=== PATIENT | female | born 1945 | race Caucasian/White ===

== ENCOUNTER 2016-08-04 11:56 | Observation (INO) | payer MEDICARE ==
[2016-08-04] MEDS ORDERED: SODIUM CHLORIDE 0.9% 500 ML IV STA (12:14)
--- NOTE | 2016-08-04 12:18 | ED ---
General Adult HPI - General Chief complaint: Syncope Stated complaint: Poss Syncope Time Seen by Provider: 08/04/16 11:58 Source: patient, EMS, RN notes reviewed Mode of arrival: EMS Limitations: no limitations - History of Present Illness Initial comments: This 71-year-old female who presents to the emergency department after having had a syncopal episode. Patient states she has significant coronary artery disease. Patient states she has a couple stents placed and one blocked artery that remains. Patient states she was at the nail salon today getting her nails done and she felt lightheaded and then she passed out and the last thing she remembers is sitting in the chair she does not remember going to the ground. According to EMS a bystander immediately push on her chest felt a crack in the patient woke up immediately. It is unclear whether that person felt for a pulse were checked for breathing. Patient states currently she feels normal she never had any chest pain never any difficulty breathing denied any palpitations. Patient states she had an episode of this a while ago when she was in [facility] and it was extremely hot. Patient denies headache patient denies any numbness weakness. Patient denies any lightheadedness dizziness or near syncopal episode. - Related Data Home Medications Medication Instructions Recorded Confirmed Aspirin 81 mg PO DAILY 08/04/16 08/04/16 Atenolol [Tenormin] 50 mg PO BID 08/04/16 08/04/16 Atorvastatin [Lipitor] 80 mg PO HS 08/04/16 08/04/16 Calcium Carbonate [Calcium] 600 mg PO HS 08/04/16 08/04/16 Cetirizine HCl [Zyrtec] 10 mg PO DAILY 08/04/16 08/04/16 Ibandronate Sodium [Boniva] 150 mg PO QMONTH 08/04/16 08/04/16 Isosorbide Mononitrate ER [Imdur] 60 mg PO DAILY 08/04/16 08/04/16 Levothyroxine Sodium [Synthroid] 75 mcg PO DAILY 08/04/16 08/04/16 Losartan Potassium [Cozaar] 50 mg PO HS 08/04/16 08/04/16 Montelukast Sodium [Singulair] 10 mg PO HS 08/04/16 08/04/16 Multivitamins, Thera [Multivitamin] 1 tab PO DAILY 08/04/16 08/04/16 Ranolazine [Ranexa] 500 mg PO BID 08/04/16 08/04/16 Timolol [Betimol 0.5% Ophth Soln] 1 drop BOTH EYES BID 08/04/16 08/04/16 Allergies Allergy/AdvReac Type Severity Reaction Status Date / Time morphine Allergy Unknown Nausea & Verified 08/04/16 13:56 Vomiting, Dreams. codeine Allergy Nausea & Verified 08/04/16 13:56 Vomiting Review of Systems ROS Statement: Those systems with pertinent positive or pertinent negative responses have been documented in the HPI. ROS Other: All systems not noted in ROS Statement are negative. Past Medical History Past Medical History: Chest Pain / Angina, Hypertension, Pneumonia, Thyroid Disorder Additional Past Medical History / Comment(s): HYPOGLYCEMIA, SEE CARDIOLOGY H & P History of Any Multi-Drug Resistant Organisms: None Reported Past Surgical History: Back Surgery, Bowel Resection, Hysterectomy Additional Past Surgical History / Comment(s): CERVICAL FUSIONS, RT CATARACT, MULTIPLE EYE SURGERYS Past Anesthesia/Blood Transfusion Reactions: Family History of Problems w/ Anesthesia, Postoperative Nausea & Vomiting (PONV) Additional Past Anesthesia/Blood Transfusion Reaction / Comment(s): FAMILY-PONV Past Psychological History: No Psychological Hx Reported Smoking Status: Never smoker Past Alcohol Use History: Rare Past Drug Use History: None Reported - Past Family History Father Family Medical History: Cancer Additional Family Medical History / Comment(s): LEUKEMIA AND CORONARY THROMBOSIS General Exam - General Exam Comments Initial Comments: GENERAL: Patient is well-developed and well-nourished. Patient is nontoxic and well- hydrated and is in mild distress. ENT: Neck is soft and supple. No significant lymphadenopathy is noted. Oropharynx is clear. Moist mucous membranes. Neck has full range of motion without eliciting any pain. EYES: The sclera were anicteric and conjunctiva were pink and moist. Extraocular movements were intact and pupils were equal round and reactive to light. Eyelids were unremarkable. PULMONARY: Unlabored respirations. Good breath sounds bilaterally. No audible rales rhonchi or wheezing was noted. CARDIOVASCULAR: There is a regular rate and rhythm without any murmurs gallops or rubs. ABDOMEN: Soft and nontender with normal bowel sounds. No palpable organomegaly was noted. There is no palpable pulsatile mass. SKIN: Skin is clear with no lesions or rashes and otherwise unremarkable. NEUROLOGIC: Patient is alert and oriented x3. Cranial nerves II through XII are grossly intact. Motor and sensory are also intact. Normal speech, volume and content. Symmetrical smile. MUSCULOSKELETAL: Normal extremities with adequate strength and full range of motion. No lower extremity swelling or edema. No calf tenderness. LYMPHATICS: No significant lymphadenopathy is noted PSYCHIATRIC: Normal psychiatric evaluation. Normal interpersonal interactions appears functionally intact in deals appropriately with others. No signs of depression. No signs of anxiety. Limitations: no limitations Course Vital Signs 08/04/16 08/04/16 08/04/16 12:06 12:41 13:53 Temperature 97.4 F L 97.9 F Pulse Rate 53 L 58 L 59 L Pulse Rate [ Sitting Dry Ice Maker] Pulse Rate [ Standing Dry Ice Maker ] Pulse Rate [ Supine Dry Ice Maker] Respiratory 18 20 18 Rate Blood Pressure 132/60 140/63 124/60 Blood Pressure [Right Arm Sitting] Blood Pressure [Right Arm Standing] Blood Pressure [Right Arm Supine] O2 Sat by Pulse 100 98 97 Oximetry 08/04/16 08/04/16 14:31 14:49 Temperature 97.9 F Pulse Rate 57 L Pulse Rate [ 56 L Sitting Dry Ice Maker] Pulse Rate [ 61 Standing Dry Ice Maker ] Pulse Rate [ 58 L Supine Dry Ice Maker] Respiratory 18 Rate Blood Pressure 127/57 Blood Pressure 117/55 [Right Arm Sitting] Blood Pressure 119/59 [Right Arm Standing] Blood Pressure 119/57 [Right Arm Supine] O2 Sat by Pulse 98 Oximetry Medical Decision Making - Medical Decision Making EKG shows sinus bradycardia 56 bpm AR interval is 160 QRS is 92 QT interval 46 QTC is 443. Patient's EKG shows no ST segment elevation or depression or T wave abnormalities are noted Spoke with Dr. Sam Vargas agreed the patient needed to be admitted overnight and observed he wanted cardiology consult. - Lab Data Result diagrams: 08/04/16 12:57 08/04/16 12:50 Lab Results 08/04/16 08/04/16 08/04/16 Range/Units 12:45 12:50 12:50 WBC (3.8-10.6) k/uL RBC (3.80-5.40) m/uL Hgb (11.4-16.0) gm/dL Hct (34.0-46.0) % MCV (80.0-100.0) fL MCH (25.0-35.0) pg MCHC (31.0-37.0) g/dL RDW (11.5-15.5) % Plt Count (150-450) k/uL Neutrophils % % Lymphocytes % % Monocytes % % Eosinophils % % Basophils % % Neutrophils # (1.3-7.7) k/uL Lymphocytes # (1.0-4.8) k/uL Monocytes # (0-1.0) k/uL Eosinophils # (0-0.7) k/uL Basophils # (0-0.2) k/uL PT (9.0-12.0) sec INR (<1.1) APTT (22.0-30.0) sec Sodium 136 L (137-145) mmol/L Potassium 4.5 (3.5-5.1) mmol/L Chloride 102 (98-107) mmol/L Carbon Dioxide 26 (22-30) mmol/L Anion Gap 8 mmol/L BUN 20 H (7-17) mg/dL Creatinine 0.94 (0.52-1.04) mg/dL Est GFR (MDRD) Af Amer >60 (>60 ml/min/1.73 sqM) Est GFR (MDRD) Non-Af 59 (>60 ml/min/1.73 sqM) Glucose 129 H (74-99) mg/dL Calcium 9.0 (8.4-10.2) mg/dL Magnesium 1.8 (1.6-2.3) mg/dL Total Bilirubin 0.8 (0.2-1.3) mg/dL AST 27 (14-36) U/L ALT 44 (9-52) U/L Alkaline Phosphatase 44 (38-126) U/L Total Creatine Kinase 64 (30-135) U/L CK-MB (CK-2) 0.7 (0.0-2.4) ng/mL CK-MB (CK-2) Rel Index 1.1 Troponin I <0.012 (0.000-0.034) ng/mL Total Protein 6.1 L (6.3-8.2) g/dL Albumin 3.8 (3.5-5.0) g/dL Urine Color Yellow Urine Appearance Clear (Clear) Urine pH 6.5 (5.0-8.0) Ur Specific [place] 1.014 (1.001-1.035) Urine Protein Negative (Negative) Urine Glucose (UA) Negative (Negative) Urine Ketones Negative (Negative) Urine Blood Negative (Negative) Urine Nitrate Negative (Negative) Urine Bilirubin Negative (Negative) Urine Urobilinogen <2.0 (<2.0) mg/dL Ur Leukocyte Esterase Negative (Negative) 08/04/16 08/04/16 Range/Units 12:50 12:57 WBC 5.9 (3.8-10.6) k/uL RBC 3.53 L (3.80-5.40) m/uL Hgb 12.0 (11.4-16.0) gm/dL Hct 34.7 (34.0-46.0) % MCV 98.2 (80.0-100.0) fL MCH 34.0 (25.0-35.0) pg MCHC 34.6 (31.0-37.0) g/dL RDW 12.5 (11.5-15.5) % Plt Count 224 (150-450) k/uL Neutrophils % 57 % Lymphocytes % 34 % Monocytes % 5 % Eosinophils % 2 % Basophils % 1 % Neutrophils # 3.4 (1.3-7.7) k/uL Lymphocytes # 2.0 (1.0-4.8) k/uL Monocytes # 0.3 (0-1.0) k/uL Eosinophils # 0.1 (0-0.7) k/uL Basophils # 0.0 (0-0.2) k/uL PT 10.9 (9.0-12.0) sec INR 1.1 (<1.1) APTT 22.9 (22.0-30.0) sec Sodium (137-145) mmol/L Potassium (3.5-5.1) mmol/L Chloride (98-107) mmol/L Carbon Dioxide (22-30) mmol/L Anion Gap mmol/L BUN (7-17) mg/dL Creatinine (0.52-1.04) mg/dL Est GFR (MDRD) Af Amer (>60 ml/min/1.73 sqM) Est GFR (MDRD) Non-Af (>60 ml/min/1.73 sqM) Glucose (74-99) mg/dL Calcium (8.4-10.2) mg/dL Magnesium (1.6-2.3) mg/dL Total Bilirubin (0.2-1.3) mg/dL AST (14-36) U/L ALT (9-52) U/L Alkaline Phosphatase (38-126) U/L Total Creatine Kinase (30-135) U/L CK-MB (CK-2) (0.0-2.4) ng/mL CK-MB (CK-2) Rel Index Troponin I (0.000-0.034) ng/mL Total Protein (6.3-8.2) g/dL Albumin (3.5-5.0) g/dL Urine Color Urine Appearance (Clear) Urine pH (5.0-8.0) Ur Specific [place] (1.001-1.035) Urine Protein (Negative) Urine Glucose (UA) (Negative) Urine Ketones (Negative) Urine Blood (Negative) Urine Nitrate (Negative) Urine Bilirubin (Negative) Urine Urobilinogen (<2.0) mg/dL Ur Leukocyte Esterase (Negative) Disposition Clinical Impression: Syncope and collapse Disposition: ADMITTED IP TO THIS [facility] Time of Disposition: 15:13
--- NOTE | 2016-08-04 12:58 | XR ---
EXAMINATION TYPE: XR chest 2V DATE OF EXAM: 08/04/2016 12:42 PM COMPARISON: NONE INDICATION: Syncope TECHNIQUE: Single frontal view of the chest is obtained. FINDINGS: The heart size is normal. The pulmonary vasculature is normal. The lungs are clear. IMPRESSION: 1. No acute pulmonary process.
[2016-08-04 13:05] LABS: Basophils % (A) 1 %; CH 34.2; CHCM 34.9; Eosinophils # (A) 0.1 k/uL (0-0.7); Eosinophils % (A) 2 %; HCT 34.7 % (34.0-46.0); HDW 2.39; Luc # (Auto) 0.14; Luc % (Auto) 2; Lymphocytes % (A) 34 %; MCHC 34.6 g/dL (31.0-37.0); MCV 98.2 fL (80.0-100.0); Mean Platelet Volume 7.5; Monocytes # (A) 0.3 k/uL (0-1.0); Monocytes % (A) 5 %; Neutrophils # (A) 3.4 k/uL (1.3-7.7); Neutrophils % (A) 57 %; RBC 3.53 m/uL (3.80-5.40); RDW 12.5 % (11.5-15.5); WBC 5.9 k/uL (3.8-10.6); WBC (Perox) 6.24
[2016-08-04 13:13] LABS: Appearance,Urine Clear (Clear); Bilirubin,Urine Negative (Negative); Glucose,Urine (UA) Negative (Negative); Ketones,Urine Negative (Negative); Leukocyte Esterase,Urine Negative (Negative); Nitrite,Urine Negative (Negative); PH, Urine 6.5 (5.0-8.0); Protein,Urine Negative (Negative); Specific Gravity,Urine 1.014 (1.001-1.035); UA Billing (MACRO vs. MICRO) CHEM; Urobilinogen,Urine <2.0 mg/dL (<2.0)
[2016-08-04 13:14] LABS: ALT 44 U/L (9-52); AST 27 U/L (14-36); Alkaline Phosphatase 44 U/L (38-126); Anion Gap 8 mmol/L; Blood Urea Nitrogen 20 mg/dL (7-17); Carbon Dioxide 26 mmol/L (22-30); Chloride 102 mmol/L (98-107); Glucose 129 mg/dL (74-99); Magnesium 1.8 mg/dL (1.6-2.3); Non-African American GFR(MDRD) 59 (>60 ml/min/1.73 sqM); Potassium 4.5 mmol/L (3.5-5.1); Sodium 136 mmol/L (137-145); Total Bilirubin 0.8 mg/dL (0.2-1.3); Total Protein 6.1 g/dL (6.3-8.2)
[2016-08-04 13:19] LABS: INR 1.1 (<1.1); Partial Thromboplastin Time 22.9 sec (22.0-30.0); Prothrombin Time 10.9 sec (9.0-12.0)
[2016-08-04 13:25] LABS: Creatine Kinase 64 U/L (30-135)
[2016-08-04 13:39] LABS: Creatine Kinase MB 0.7 ng/mL (0.0-2.4); Troponin I <0.012 ng/mL (0.000-0.034)
[2016-08-04] MEDS ORDERED: NITROGLYCERIN SL TABS 0.4 MG TAB SUBLINGUAL PRN (15:13)
[2016-08-04 20:03] LABS: Creatine Kinase 52 U/L (30-135)
[2016-08-04 20:16] LABS: Creatine Kinase MB 0.5 ng/mL (0.0-2.4); Troponin I <0.012 ng/mL (0.000-0.034)
[2016-08-04] MEDS: RANOLAZINE 500 MG TAB.ER.12H PO SCH (21:03)
[2016-08-04] MEDS: ATORVASTATIN 80 MG TAB PO SCH (21:03)
[2016-08-04] MEDS: ATENOLOL 50 MG TAB PO SCH (21:03)
[2016-08-04] MEDS: CALCIUM CARBONATE 500 MG CHEWABLE PO SCH (21:04)
[2016-08-04] MEDS: MONTELUKAST 10 MG TAB PO SCH (21:04)
[2016-08-04] MEDS: TIMOLOL 0.5% OPHTH DROPS 5 ML BTL BOTH EYES SCH (21:04)
[2016-08-04] MEDS: LOSARTAN 50 MG TAB PO SCH (21:04)
[2016-08-05 00:49] LABS: Cholesterol 112 mg/dL (<200); HDL Cholesterol 58 mg/dL (40-60); Triglycerides 85 mg/dL (<150)
[2016-08-05 00:53] LABS: Creatine Kinase 49 U/L (30-135)
[2016-08-05 01:07] LABS: Creatine Kinase MB 0.5 ng/mL (0.0-2.4); Troponin I <0.012 ng/mL (0.000-0.034)
[2016-08-05] MEDS: LEVOTHYROXINE 75 MCG TAB PO SCH (06:35)
--- NOTE | 2016-08-05 07:47 | P.HPIM ---
History of Present Illness H&P Date: 08/05/16 Chief Complaint: Syncopal episode. This is a history and physical on a 71-year-old white female with known history of coronary artery disease and history of stent placement in the past. The patient was getting her nails done and had sudden onset of collapse. A bystander actually formed compressions and she woke up suddenly after this. She estimates that it was less than a minute that she was actually incapacitated. She was lucid when she came to. There is no history of seizure activity. No numbness or tingling. She does state that she felt a little bit woozy suddenly. No previous episodes of this. No significant chest pain stated. She is not admitted for observation. Cardiac enzymes are nominal. Given her history, I will order echocardiogram and carotid Doppler. Otherwise, she seems lucid. Again, no visual loss, numbness or tingling. No element of sensory dysfunction including smell and taste. Review of Systems Constitutional: Denies chills, Denies fever Eyes: denies blurred vision, denies pain Ears, nose, mouth and throat: Denies headache, Denies sore throat Cardiovascular: Denies chest pain, Denies shortness of breath Respiratory: Denies cough Gastrointestinal: Denies abdominal pain, Denies diarrhea, Denies nausea, Denies vomiting Genitourinary: Denies dysuria, Denies hematuria Musculoskeletal: Denies myalgias Integumentary: Denies pruritus, Denies rash Neurological: Denies numbness, Denies weakness Past Medical History Past Medical History: Coronary Artery Disease (CAD), Chest Pain / Angina, Hyperlipidemia, Hypertension, Pneumonia, Thyroid Disorder Additional Past Medical History / Comment(s): HYPOGLYCEMIA, SEE CARDIOLOGY H & P , PAST MIGRAINES, LT EYE BLIND, UTI, STRESS INCONT OF URINE WEARS A PAD, CONSTIPATION -TAKES AN HERBAL LALXATIVE DAILY, TOLD HAD THE BEGINNINGS OF EMPHYSEMA, HERNIATED DISC IN NECK(HAD SX), 3 YEARS AGO ALEXANDRU Gutierrez AT [facility] IN [place] HAD SYNCOPAL EPISODE-WAS TOLD IT WAS D/T DEHYDRATION.HAD PNE VACCINE THINKS IN 2014 BUT NOT SURE OF DATE. History of Any Multi-Drug Resistant Organisms: None Reported Past Surgical History: Appendectomy, Back Surgery, Bowel Resection, Heart Catheterization With Stent, Hysterectomy Additional Past Surgical History / Comment(s): CERVICAL FUSIONS, RT CATARACT, MULTIPLE LT EYE SURGERYS, LT HAND INDEX FINGER BENIGN GROWTH REMOVED, AGE 17 SX FOR PAPO OVARIAN CYST-1 RUTPURED, BOWEL RESECTION D/T BLOCKAGE, RT EYE SX FOR MAC[place]A HOLE, 2 CARDIAC STENTS. Past Anesthesia/Blood Transfusion Reactions: Family History of Problems w/ Anesthesia, Postoperative Nausea & Vomiting (PONV) Additional Past Anesthesia/Blood Transfusion Reaction / Comment(s): FAMILY-PONV Date of Last Stent Placement:: Past Psychological History: No Psychological Hx Reported Smoking Status: Never smoker Past Alcohol Use History: None Reported Past Drug Use History: None Reported - Past Family History Mother Family Medical History: Osteoarthritis (OA), Rheumatoid Arthritis (RA) Additional Family Medical History / Comment(s): DIEDT CONTROLLED DIABETES. PT 'S AUNT FROM OVARIAN CANCER. Father Family Medical History: Cancer, Myocardial Infarction (MN) Additional Family Medical History / Comment(s): AT AGE 52 HAD MN THEN 11 YEARS LATER FROM LEUKEMIA Medications and Allergies Home Medications Medication Instructions Recorded Confirmed Type Aspirin 81 mg PO DAILY 08/04/16 08/04/16 History Atenolol [Tenormin] 50 mg PO BID 08/04/16 08/04/16 History Atorvastatin [Lipitor] 80 mg PO HS 08/04/16 08/04/16 History Calcium Carbonate [Calcium] 600 mg PO HS 08/04/16 08/04/16 History Cetirizine HCl [Zyrtec] 10 mg PO DAILY 08/04/16 08/04/16 History Ibandronate Sodium [Boniva] 150 mg PO QMONTH 08/04/16 08/04/16 History Isosorbide Mononitrate ER [Imdur] 60 mg PO DAILY 08/04/16 08/04/16 History Levothyroxine Sodium [Synthroid] 75 mcg PO DAILY 08/04/16 08/04/16 History Losartan Potassium [Cozaar] 50 mg PO HS 08/04/16 08/04/16 History Montelukast Sodium [Singulair] 10 mg PO HS 08/04/16 08/04/16 History Multivitamins, Thera [Multivitamin] 1 tab PO DAILY 08/04/16 08/04/16 History Ranolazine [Ranexa] 500 mg PO BID 08/04/16 08/04/16 History Timolol [Betimol 0.5% Ophth Soln] 1 drop BOTH EYES BID 08/04/16 08/04/16 History Allergies Allergy/AdvReac Type Severity Reaction Status Date / Time morphine Allergy Unknown Nausea & Verified 08/04/16 13:56 Vomiting, Dreams. codeine Allergy Nausea & Verified 08/04/16 13:56 Vomiting Physical Exam Vitals: Vital Signs Temp Pulse Pulse Resp BP BP BP 08/05/16 04:00 98.4 F 60 16 146/67 08/05/16 00:00 98.4 F 63 16 155/68 08/04/16 20:58 61 08/04/16 20:00 61 16 08/04/16 19:56 98.1 F 63 16 171/76 08/04/16 17:36 08/04/16 16:56 98 F 57 L 16 164/73 08/04/16 16:05 97.9 F 57 L 18 117/55 BP Pulse Ox 08/05/16 04:00 95 08/05/16 00:00 95 08/04/16 20:58 143/66 08/04/16 20:00 08/04/16 19:56 98 08/04/16 17:36 98 08/04/16 16:56 98 08/04/16 16:05 97 Intake and Output 08/04/16 08/05/16 08/05/16 22:59 06:59 14:59 Other: Voiding Method Toilet Toilet # Voids 1 1 Weight 61.5 kg - Constitutional General appearance: no acute distress - EENT Eyes: EOMI - Neck Neck: no lymphadenopathy - Respiratory Respiratory: bilateral: CTA - Cardiovascular Rhythm: regular Heart sounds: normal: S1, S2 - Gastrointestinal General gastrointestinal: soft, no tenderness - Neurologic Neurologic: CNII-XII intact, focal deficits - Psychiatric Psychiatric: intact judgment & insight Results CBC & Chem 7: 08/04/16 12:57 08/04/16 12:50 Assessment and Plan (1) History of coronary artery disease Status: Chronic (2) Hypertension Status: Chronic (3) Syncope and collapse Status: Acute Plan: Again, cardiology has been consulted. Continue panel monitor at this time given syncopal episode. Check echocardiogram and carotid Doppler. If symptoms continue, consider neurologic evaluation. However, given the rapidity of her symptoms and story, rule out cardiogenic syncope at this time. She orders otherwise. Anticipate discharge later today or in the next 24-48 hours Time with Patient: Less than 30
[2016-08-05] MEDS ORDERED: AMINOPHYLLINE 500 MG/20 ML VIAL IV PRN (08:37)
[2016-08-05] MEDS ORDERED: REGADENOSON 0.4 MG/5 ML SYRINGE IV ONE (08:37)
[2016-08-05] MEDS ORDERED: ASPIRIN 81 MG CHEW PO SCH (09:00)
--- NOTE | 2016-08-05 09:20 | CONS ---
DATE OF CONSULTATION: CHIEF COMPLAINT: Syncope. Denise is a 71-year-old lady with history of coronary artery disease, status post prior angioplasty including angioplasty of the LAD and patient also has chronic total occlusion of the right coronary artery. Patient comes in having had an episode of syncope. She was getting her nails done, was in a sitting position and suddenly passed out. Since being admitted to hospital, she has not had any further episodes of syncope. She denies shortness of breath, palpitations, dizziness, or focal neurological deficits. EKG does not reveal acute ischemic changes. Three 3 sets of cardiac enzymes are negative. Past medical history is significant for CAD, status post angioplasty, hypertension, dyslipidemia, hypothyroidism. Current medications include Singulair 10 q. daily, Cozaar 50 q. daily, Boniva, calcium, Lipitor, Zyrtec, multivitamin, Ranexa, Synthroid, Imdur, Tenormin and aspirin. Allergic to morphine and codeine. Family history is significant for coronary artery disease in her mother. Social history is negative for current smoking, EtOH abuse, or drug abuse. REVIEW OF SYSTEMS: HEENT is unremarkable. CARDIAC: As described above. RESPIRATORY: Negative. GI: Negative. GENITOURINARY: Negative. ALLERGY/IMMUNOLOGY: Negative. ENDOCRINE: Negative. DERM: Negative. CONSTITUTIONAL: Negative. ONCOLOGICAL: Negative. The rest of the system review is not relevant. On exam, patient is afebrile, heart rate is 60 beats per minute, blood pressure is 130/49, respiratory rate is 18. There is no jugular venous distention. Carotid upstroke is normal. There is no bruit. Chest exam reveals good air entry bilaterally. Heart exam reveals first and second heart sounds. No gallop. No murmur, no rub. Abdomen is soft, nontender. Exam of the extremities did not reveal any edema. Peripheral pulses are felt. INVENTORY CONTROL COORDINATOR exam did not reveal focal neurological deficits. Labs show a hemoglobin of 12, platelet count is 224. Potassium is 4.5. Creatinine is 0.9, three sets of tropes are negative. LDL cholesterol is 37. ASSESSMENT: 1. Syncope; rule out cardiac causes. 2. Coronary artery disease, status post multivessel angioplasty. 3. Hypertension. PLAN: I am going to obtain a d-dimer to rule out pulmonary embolism, obtain a 2-D echo and schedule him for a stress test. She states that she had a carotid duplex study done through other office. I will get hold of the results.
--- NOTE | 2016-08-05 11:02 | ECHOF ---
Referral Reason:syncope MEASUREMENTS -------- HEIGHT: 157.5 cm WEIGHT: 61.2 kg BP: 131/49 RVIDd: 2.7 cm (< 3.3) IVSd: 1.1 cm (0.6 - 1.1) LVIDd: 4.1 cm (3.9 - 5.3) LVPWd: 1.2 cm (0.6 - 1.1) IVSs: 1.4 cm LVIDs: 2.8 cm LVPWs: 1.7 cm LA Diam: 3.2 cm (2.7 - 3.8) LAESV Index (A-L): 30.83 ml/m Ao Diam: 3.2 cm (2.0 - 3.7) AV Cusp: 2.2 cm (1.5 - 2.6) MV EXCURSION: 10.716 mm (> 18.000) MV EF SLOPE: 24 mm/s (70 - 150) EPSS: 0.9 cm MV E Jensen: 0.84 m/s MV DecT: 263 ms MV A Jensen: 0.90 m/s MV E/A Ratio: 0.93 RAP: 5.00 mmHg RVSP: 27.07 mmHg FINDINGS -------- Sinus rhythm. This was a technically good study. The left ventricular size is normal. There is borderline concentric left ventricular hypertrophy. Overall left ventricular systolic function is mild-moderately impaired with, an EF between 40 - 45 %. Basal inferior LV wall motion is akinetic. Basal inferoseptal LV wall motion is hypokinetic. The right ventricle is normal in size. LA is midly dilated 29-33ml/m2. The right atrium is normal in size. The aortic valve is trileaflet and appears structurally normal. Mild mitral regurgitation is present. Mild tricuspid regurgitation present. Right ventricular systolic pressure is normal at < 35 mmHg. Trace/mild (physiologic) pulmonic regurgitation. The aortic root size is normal. Normal inferior vena cava with normal inspiratory collapse consistent with estimated right atrial pressure of 5 mmHg. There is no pericardial effusion. CONCLUSIONS -------- 1. Sinus rhythm. 2. The right atrium is normal in size. 3. The aortic valve is trileaflet and appears structurally normal. 4. Mild mitral regurgitation is present. 5. Mild tricuspid regurgitation present. 6. Right ventricular systolic pressure is normal at < 35 mmHg. 7. Trace/mild (physiologic) pulmonic regurgitation. 8. The aortic root size is normal. 9. There is no pericardial effusion. 10. This was a technically good study. 11. The left ventricular size is normal. 12. There is borderline concentric left ventricular hypertrophy. 13. Overall left ventricular systolic function is mild-moderately impaired with, an EF between 40 - 45 %. 14. Basal inferior LV wall motion is akinetic. 15. Basal inferoseptal LV wall motion is hypokinetic. 16. The right ventricle is normal in size. 17. LA is midly dilated 29-33ml/m2. COLLECTIONS ASSOCIATE: Piper Rhoades RDCS
--- NOTE | 2016-08-05 12:30 | EST ---
DATE OF SERVICE: 08/05/2016 AGE: 71Y SEX: F HT: 62" WT: 135 lbs. Lexiscan Cardiolite Stress Test *Heart Rate Blood Pressure *Rest: 68 Rest: 147/102 * *Max. Achieved: 92 Maximum BP: 211/86 85% PMHR: - 100% PMHR: - *METS: - INDICATIONS: Syncope. MEDICATIONS: - STRESS DATA: Pretesting physical examination showed a heart rate of 68, blood pressure is 147/102 mmHg. A 0.4 mg of Lexiscan was given to the patient over 15 seconds per protocol. Max heart rate was 92 beats per minute and maximum blood pressure was 211/86 mmHg. Clinically, she did not have any symptoms and the EKG did not show any significant ST or T-wave abnormalities consistent with ischemia. CONCLUSION: 1. Nondiagnostic echocardiogram stress testing in response to Lexiscan. 2. Please follow up on the Cardiolite portion on a separate report from the Radiology Department.
--- NOTE | 2016-08-05 12:32 | NM ---
EXAMINATION TYPE: NM stress lexiscan cardiolite DATE OF EXAM: 08/05/2016 12:04 PM COMPARISON: NONE HISTORY: Chest pain TECHNIQUE: After the intravenous administration of 10 mCi Tc 99m Sestamibi - Cardiolite resting SPEC T images acquired 60 minutes post injection. The patient received 0.4mg Lexiscan, 26.3 mCi Tc 99m Sestamibi - Stress images obtained [address] injection FINDINGS: Review of stress and rest SPECT images demonstrates fixed defect involving the inferior myocardium. S mall area of stress-induced reversibility not excluded. Gated analysis shows normal wall motion with an estimated left ventricular ejection fraction of 40 %. IMPRESSION: Findings are suggestive of an area of stress-induced reversibility involving the inferior myocardium
--- NOTE | 2016-08-05 12:35 | US ---
EXAMINATION TYPE: US carotid duplex BILAT DATE OF EXAM: 08/05/2016 11:45 AM COMPARISON: None CLINICAL HISTORY: Syncope and collapse. Pt states she was getting her nails done and passed out. Pt is on meds for high BP EXAM MEASUREMENTS: RIGHT: Peak Systolic Velocity (PSV) cm/sec ----- Right CCA: 52.3 ----- Right ICA: 58.4 ----- Right ECA: 109.7 ICA/CCA ratio: 1.1 RIGHT: End Diastole cm/sec ----- Right CCA: 10.4 ----- Right ICA: 16.5 ----- Right ECA: 6.3 LEFT: Peak Systolic Velocity (PSV) cm/sec ----- Left CCA: 60.1 ----- Left ICA: 65.3 ----- Left ECA: 44.1 ICA/CCA ratio: 1.1 LEFT: End Diastole cm/sec ----- Left CCA: 10.4 ----- Left ICA: 19.1 ----- Left ECA: 0.0 VERTEBRALS (direction of flow): Right Vertebral: Antegrade Left Vertebral: Antegrade FINDINGS: Bilateral wall thickening. No significant stenosis. Comparable to other velocities, right ECA appears elevated. Plaque seen in bilateral bulbs. IMPRESSION: 1. No significant hemodynamic stenosis. 2. Bilateral intimal thickening with atherosclerotic plaque at the carotid bifurcation.
[2016-08-05] MEDS: MULTIVITAMINS, THERA 1 EACH TAB PO SCH (12:48)
[2016-08-05] MEDS: ATENOLOL 50 MG TAB PO SCH ×2 (12:48→20:40)
[2016-08-05] MEDS: RANOLAZINE 500 MG TAB.ER.12H PO SCH ×2 (12:48→20:40)
[2016-08-05] MEDS: LORATADINE 10 MG TAB PO SCH (12:49)
[2016-08-05] MEDS: TIMOLOL 0.5% OPHTH DROPS 5 ML BTL BOTH EYES SCH ×2 (12:49→20:40)
[2016-08-05] MEDS: ASPIRIN 325 MG TAB PO SCH (12:49)
[2016-08-05] MEDS: ISOSORBIDE MONONITRATE ER 60 MG TAB.ER.24H PO SCH (12:49)
[2016-08-05] MEDS ORDERED: ASPIRIN 325 MG TAB PO STA (16:17)
[2016-08-05] MEDS ORDERED: SODIUM CHLORIDE 0.9% 1,000 ML in EMPTY BAG 1 BAG IV ONE (16:17)
[2016-08-05] MEDS ORDERED: ALPRAZolam 0.25 MG TAB PO PRN (16:17)
[2016-08-05] MEDS ORDERED: ALPRAZolam 0.5 MG TAB PO PRN (16:17)
[2016-08-05 16:40] LABS: Basophils # (A) 0.1 k/uL (0-0.2); Basophils % (A) 1 %; CH 34.2; CHCM 33.6; Eosinophils # (A) 0.2 k/uL (0-0.7); Eosinophils % (A) 3 %; HCT 38.1 % (34.0-46.0); HDW 2.29; HGB 12.3 gm/dL (11.4-16.0); Luc # (Auto) 0.18; Luc % (Auto) 3; Lymphocytes # (A) 2.2 k/uL (1.0-4.8); Lymphocytes % (A) 41 %; MCH 33.1 pg (25.0-35.0); MCHC 32.3 g/dL (31.0-37.0); MCV 102.2 fL (80.0-100.0); Macrocytosis Slight; Mean Platelet Volume 7.9; Monocytes # (A) 0.4 k/uL (0-1.0); Monocytes % (A) 8 %; Neutrophils # (A) 2.4 k/uL (1.3-7.7); Neutrophils % (A) 45 %; RBC 3.73 m/uL (3.80-5.40); RDW 12.5 % (11.5-15.5); WBC 5.4 k/uL (3.8-10.6); WBC (Perox) 5.52
[2016-08-05 16:46] LABS: Anion Gap 8 mmol/L; Blood Urea Nitrogen 15 mg/dL (7-17); Calcium 9.2 mg/dL (8.4-10.2); Carbon Dioxide 26 mmol/L (22-30); Chloride 101 mmol/L (98-107); Glucose 94 mg/dL (74-99); Non-African American GFR(MDRD) 51 (>60 ml/min/1.73 sqM); Potassium 4.3 mmol/L (3.5-5.1); Sodium 135 mmol/L (137-145)
[2016-08-05] MEDS: ATORVASTATIN 80 MG TAB PO SCH (20:40)
[2016-08-05] MEDS: LOSARTAN 50 MG TAB PO SCH (20:40)
[2016-08-05] MEDS: MONTELUKAST 10 MG TAB PO SCH (20:40)
[2016-08-05] MEDS: CALCIUM CARBONATE 500 MG CHEWABLE PO SCH (20:40)
[2016-08-06] MEDS: ISOSORBIDE MONONITRATE ER 60 MG TAB.ER.24H PO SCH (06:23)
[2016-08-06] MEDS: MULTIVITAMINS, THERA 1 EACH TAB PO SCH (06:23)
[2016-08-06] MEDS: ATENOLOL 50 MG TAB PO SCH (06:23)
[2016-08-06] MEDS: LEVOTHYROXINE 75 MCG TAB PO SCH (06:23)
[2016-08-06] MEDS: ASPIRIN 325 MG TAB PO SCH (06:23)
[2016-08-06] MEDS: RANOLAZINE 500 MG TAB.ER.12H PO SCH (06:23)
[2016-08-06] MEDS: TIMOLOL 0.5% OPHTH DROPS 5 ML BTL BOTH EYES SCH (06:23)
[2016-08-06] MEDS: LORATADINE 10 MG TAB PO SCH (06:25)
[2016-08-06 06:59] LABS: Glucose,Whole Blood 108 mg/dL (75-99)
--- NOTE | 2016-08-06 07:47 | PN ---
A 71-year-old lady with known coronary artery disease was admitted to hospital with syncope and had a stress test that showed ischemia involving inferior wall; however, she was initially to have a cardiac catheterization. Patient declined cardiac catheterization. On reviewing her prior angiographic data revealed totally occluded right coronary artery. Probably the ischemia is related to it. She is stable and has not had any further syncopal events. She is pain free, hemodynamically stable and is eager to go home. I am going to cancel the cardiac cath this morning. On exam, she is comfortable at rest. Vital signs are stable. There is no jugular venous distention. Chest exam reveals good air entry bilaterally. Heart exam reveals first and second heart sounds. No gallop. Abdomen is soft, nontender. Exam of extremities did not reveal edema. Peripheral pulses are felt. ASSESSMENT: 1. Syncope 2. Known coronary artery disease with abnormal stress test which shows ischemia involving inferior wall but that is where she had an occluded vessel. Will treat the patient with medical therapy at this time as per her wishes. She is stable to be discharged home and have outpatient follow-up with Dr. Marques.
[2016-08-06 08:25] VITALS: BP 111/56; PULSE 63; RESP 14; TEMP 98.2
--- NOTE | 2016-08-06 08:47 | P.DS ---
Providers Date of admission: 08/04/16 15:14 Attending physician: Uche Vargas Primary care physician: Uche Vargas - Discharge Diagnosis(es) (1) History of coronary artery disease Current Visit: Yes Status: Chronic Priority: Medium (2) Hypertension Current Visit: Yes Status: Chronic Priority: Low (3) Syncope and collapse Current Visit: Yes Status: Acute Priority: High Hospital Course: See discharge summary 71-year-old white female essentially admitted for syncopal episode. Stress testing did show ischemic element. However given her overall wishes, she wishes to have maximum improvement of medical therapy before doing anything more invasive. She'll follow-up with Dr. Marques in about a week. She also see me in about 7 days. Patient Condition at Discharge: Stable Plan - Discharge Summary New Discharge Prescriptions: Nitroglycerin Sl Tabs [Nitrostat] 0.4 mg SUBLINGUAL Q5M PRN #50 tab PRN Reason: Chest Pain Discharge Medication List Aspirin 81 mg PO DAILY 08/04/16 [History] Atenolol [Tenormin] 50 mg PO BID 08/04/16 [History] Atorvastatin [Lipitor] 80 mg PO HS 08/04/16 [History] Calcium Carbonate [Calcium] 600 mg PO HS 08/04/16 [History] Cetirizine HCl [Zyrtec] 10 mg PO DAILY 08/04/16 [History] Ibandronate Sodium [Boniva] 150 mg PO QMONTH 08/04/16 [History] Isosorbide Mononitrate ER [Imdur] 60 mg PO DAILY 08/04/16 [History] Levothyroxine Sodium [Synthroid] 75 mcg PO DAILY 08/04/16 [History] Losartan Potassium [Cozaar] 50 mg PO HS 08/04/16 [History] Montelukast Sodium [Singulair] 10 mg PO HS 08/04/16 [History] Multivitamins, Thera [Multivitamin] 1 tab PO DAILY 08/04/16 [History] Ranolazine [Ranexa] 500 mg PO BID 08/04/16 [History] Timolol [Betimol 0.5% Ophth Soln] 1 drop BOTH EYES BID 08/04/16 [History] Aspirin 325 mg PO DAILY tab 08/06/16 [Rx] Nitroglycerin Sl Tabs [Nitrostat] 0.4 mg SUBLINGUAL Q5M PRN #50 tab 08/06/16 [Rx ] Follow up Appointment(s)/Referral(s): Sanjay Marques MD [STAFF PHYSICIAN] - 1 Week Uche Vargas MD [Primary Care Provider] - 1 Week Discharge Disposition: HOME SELF-CARE
== END 2016-08-06 12:00 | disposition home or self-care (01) ==
LOC: EC 11:56 → 3OBS 15:14
PROVIDERS: ADMIT Family Medicine; ATTEND Family Medicine
DX: R55 Syncope and collapse (principal); I10 Essential (primary) hypertension; I25.10 Atherosclerotic heart disease of native coronary artery without angina pectoris; E03.9 Hypothyroidism, unspecified; E78.5 Hyperlipidemia, unspecified; I25.82 Chronic total occlusion of coronary artery; Z79.82 Long term (current) use of aspirin; Z88.5 Allergy status to narcotic agent; Z95.5 Presence of coronary angioplasty implant and graft; Z79.899 Other long term (current) drug therapy; Z79.890 Hormone replacement therapy
CPT/HCPCS: 36415; 93005; 93017; 93306; 85379; 80061; 80053; 80048; 82550 ×2; 82553 ×2; 83735; 84484 ×2; 85025 ×2; 85610; 85730; 81003; 71020; 93880; 78452; 99285; 96360; G0378 ×3; A9500; J2785

== ENCOUNTER 2016-08-30 06:00 | Day surgery (SDC) | payer MEDICARE ==
[2016-08-25 11:39] VITALS: BMI 23.8
[2016-08-30] MEDS ORDERED: ATORVASTATIN 80 MG TAB PO STA (06:04)
[2016-08-30] MEDS ORDERED: ASPIRIN 325 MG TAB PO STA (06:04)
[2016-08-30] MEDS ORDERED: ALPRAZolam 0.25 MG TAB PO PRN (06:04)
[2016-08-30] MEDS ORDERED: ALPRAZolam 0.5 MG TAB PO PRN (06:04)
[2016-08-30] MEDS ORDERED: NITROGLYCERIN SL TABS 0.4 MG TAB SUBLINGUAL PRN ×3 (06:04→10:12)
[2016-08-30] MEDS ORDERED: SODIUM CHLORIDE 0.9% 1,000 ML in EMPTY BAG 1 BAG IV ONE (06:04)
[2016-08-30] MEDS ORDERED: HEPARIN SODIUM 1,000 UNIT/ML VIAL ONE (07:10)
[2016-08-30] MEDS ORDERED: diphenhydrAMINE 50 MG/ML 1 ML VIAL ONE (07:11)
[2016-08-30] MEDS ORDERED: MIDAZOLAM 2 MG/2 ML VIAL ONE (07:11)
[2016-08-30] MEDS ORDERED: LIDOCAINE 2% INJ 20 MG/ML (20 ML MDV) ONE ×2 (07:11→09:20)
[2016-08-30] MEDS ORDERED: SODIUM CHLORIDE 0.9% (PF) 10 ML VIAL ONE (07:11)
[2016-08-30] MEDS ORDERED: VERAPAMIL 2.5 MG/ML 2 ML AMP ONE (07:11)
[2016-08-30] MEDS ORDERED: MIDAZOLAM 2 MG/2 ML VIAL IVP ONE (07:58)
[2016-08-30] MEDS ORDERED: LIDOCAINE 2% (PF) 20 MG/ML 10ML SQ ONE ×2 (08:03→09:21)
[2016-08-30] MEDS ORDERED: CLOPIDOGREL 75 MG TAB ONE (09:36)
[2016-08-30] MEDS ORDERED: CLOPIDOGREL 75 MG TAB PO ONE (09:40)
[2016-08-30] MEDS: NITROGLYCERIN 1000MCG/10ML SYRINGE INTRACORON ONE ×4 (09:42→10:02)
[2016-08-30] MEDS ORDERED: IOHEXOL 350 MG/ML 100 ML BOTTLE INJ ONE (10:04)
[2016-08-30] MEDS ORDERED: RX INFO: IV CONTRAST WAS GIVEN 1 EACH MISC MISCELLANE PRN (10:12)
[2016-08-30] MEDS ORDERED: ZOLPIDEM 5 MG TAB PO PRN (10:12)
[2016-08-30] MEDS ORDERED: ATROPINE SULFATE 0.1 MG/ML 10ML SYRINGE IV PRN (10:12)
[2016-08-30] MEDS ORDERED: MAG HYDROX/AL HYDROX/SIMETH 30 ML CUP PO PRN (10:12)
[2016-08-30] MEDS ORDERED: SODIUM CHLORIDE 0.9% 1,000 ML IV SCH (10:15)
[2016-08-30] MEDS ORDERED: hydrALAZINE HCL 20 MG/ML 1 ML VIAL ONE (10:24)
[2016-08-30] MEDS ORDERED: hydrALAZINE HCL 20 MG/ML 1 ML VIAL IV ONE (10:27)
[2016-08-30] MEDS: ACETAMINOPHEN TAB 325 MG TAB PO PRN ×3 (13:29→21:58)
[2016-08-30] MEDS ORDERED: SODIUM CHLORIDE 0.9% 1,000 ML IV ONE (15:00)
[2016-08-30] MEDS: RANOLAZINE 500 MG TAB.ER.12H PO SCH (20:29)
[2016-08-30] MEDS: ATENOLOL 50 MG TAB PO SCH (20:29)
[2016-08-30] MEDS: TIMOLOL 0.5% OPHTH DROPS 5 ML BTL LEFT EYE SCH (20:33)
[2016-08-30] MEDS ORDERED: CALCIUM CARBONATE 500 MG CHEWABLE PO SCH (21:00)
[2016-08-30] MEDS ORDERED: LOSARTAN 50 MG TAB PO SCH (21:00)
[2016-08-30] MEDS ORDERED: MONTELUKAST 10 MG TAB PO SCH (21:00)
--- NOTE | 2016-08-30 23:09 | LTR ---
August 30, 2016 RE: Denise Cormier Dear Uche: As we discussed on the phone, Denise Cormier underwent successful balloon angioplasty and stenting of the right coronary artery with a good angiographic result and without any complication. Thank you for allowing us to participate in her care. Sincerely, LUIS FREITAS MD
--- NOTE | 2016-08-30 23:09 | CC ---
DATE OF SERVICE: August 30, 2016. Performing physician: Sanjay Marques M.D. production support developer. PROCEDURE PERFORMED: 1. Selective right and left coronary angiogram. 2. Successful stenting of the proximal right coronary artery using 2.5 x 28 mm Xience BRUNILDA with a good angiographic results. 3. Successful stenting of the distal RCA using 2.5 by the 18 mm Xience BRUNILDA with a good angiographic results. 4. Successful stenting of the mid RCA using 2.5 x 8 mm Xience BRUNILDA with a good angiographic results. 5. An atherectomy of the right coronary artery using the CSI device. 6. Successful placement of transvenous temporary pacemaker. 7. Selective right common femoral artery angiogram. INDICATION: This is a very pleasant 71-year-old female patient who is known to have coronary artery disease and prior stenting of the LAD was experiencing chest discomfort consistent with angina and was relieved by nitroglycerin. Her symptoms has been getting quite worse in terms of frequency in intensity. The decision was made toward heart catheterization and possible percutaneous coronary intervention. Approach: Right common femoral artery. COMPLICATIONS: None. Level of sedation: Moderate with sedation. Length of 2 hours and 15 minutes. PROCEDURE DESCRIPTION: After obtaining informed consent, the patient was brought to the cardiac dental laboratory technician apprentice. The right femoral artery was cannulated using micropuncture technique. The micropuncture wire passed easily. Then I placed 6 Romansh sheath in the right common femoral artery. Subsequently, I did selective right and left coronary angiogram using JR 3.5 and JL 3.5 catheters. After that I did intervene on the right coronary artery. Please see separate paragraph for that. SELECTIVE CORONARY ANGIOGRAM: 1. The right coronary artery is a large-caliber vessel and it is a dominant vessel and it is 100% occluded in the proximal portion and fills by collateral from the left coronary system. 2. The left main is angiographically normal, it bifurcates into the left circumflex and left anterior descending artery. 3. The left circumflex is a large-caliber vessel and it is a nondominant vessel. The ostial and proximal left circumflex appeared to be diseased 50%. The mid left circumflex appeared to have mild disease only and gives rise into a medium size acute marginal branch. The distal left circumflex continues after that as a small-caliber vessel in the AV groove after gives rise into a small second obtuse marginal branch. 4. Left anterior descending artery: The proximal left anterior descending artery is stented and the stent has mild in-stent restenosis. The mid LAD appeared to have mild disease only and LAD distally appeared to be angiographically normal. The LAD gives rises in the proximal portion in to 2 small diagonal branches. PCI of the RCA: Anticoagulation was initiated using heparin and the patient was given a weight -based heparin with ACT monitoring during the procedure. After that, I took JR4 3.5 guide and RCA was engaged. I tried to cross the HUMAN CAPITAL MANAGER of the RCA initially using Choice PT wire and I was unsuccessful using a Whisper wire. Then I was unsuccessful. Then I was able to cross the HUMAN CAPITAL MANAGER using a filter XP wire. I tried to advance 1.2 x 8 mm balloon across the HUMAN CAPITAL MANAGER but the balloon would not cross. At that point, I advance a fine cross catheter to the proximal RCA just distal to the HUMAN CAPITAL MANAGER lesion. After that, I did inject through the catheter to prove that I was in the true lumen and then I did advance ViperWire preparing atherectomy. I did multiple runs of rotational atherectomy using the CSI device. I did one run on low speed and another run on the high speed. Subsequently, I did advance a 2.0 x 15 mm balloon to the proximal RCA, where I did multiple PTCA ballooning. Subsequently, I did advance 25 x 28 mm stent, where the stent was positioned under fluoroscopy guidance and it was deployed under 12 atmospheres for 20 seconds. There was another lesion in the distal right coronary artery where I did deploy that lesion to 5 x 20 x 80 mm another drug eluting stent. The stent was again was positioned under fluoroscopy guidance and deployed under 12 atmospheres for 20 seconds. There was a focal lesion in the mid RCA at that point, I decided to cover that lesion with two 5 x 8 mm stent which was positioned again under fluoroscopy guidance and it was deployed. Before I started the atherectomy I did access the right common femoral vein using micropuncture technique. Then I placed transvenous temporary pacemaker. The procedure was completed without any complication. CONCLUSION: 1. 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 2. Patent stent in the proximal left anterior descending artery. 3. Mild disease involving the left circumflex coronary artery. 4. An atherectomy of the right coronary artery. 5. Successful stenting of the right coronary artery using three drug eluting stent as described above. POSTPROCEDURE MANAGEMENT: 1. Maximize medical treatment. 2. Follow up with the patient.
[2016-08-31 06:04] LABS: Basophils % (A) 0 %; CH 34.1; CHCM 33.9; Eosinophils # (A) 0.1 k/uL (0-0.7); Eosinophils % (A) 1 %; HCT 30.1 % (34.0-46.0); HDW 2.27; HGB 10.1 gm/dL (11.4-16.0); Luc # (Auto) 0.23; Luc % (Auto) 3; Lymphocytes # (A) 2.2 k/uL (1.0-4.8); Lymphocytes % (A) 33 %; MCH 33.8 pg (25.0-35.0); MCHC 33.5 g/dL (31.0-37.0); MCV 100.9 fL (80.0-100.0); Macrocytosis Slight; Mean Platelet Volume 7.4; Monocytes # (A) 0.3 k/uL (0-1.0); Monocytes % (A) 5 %; Neutrophils # (A) 3.9 k/uL (1.3-7.7); Neutrophils % (A) 58 %; RBC 2.98 m/uL (3.80-5.40); WBC 6.8 k/uL (3.8-10.6); WBC (Perox) 6.99
[2016-08-31 06:29] LABS: Anion Gap 5 mmol/L; Blood Urea Nitrogen 16 mg/dL (7-17); Calcium 8.6 mg/dL (8.4-10.2); Carbon Dioxide 22 mmol/L (22-30); Chloride 107 mmol/L (98-107); Glucose 96 mg/dL (74-99); Non-African American GFR(MDRD) >60 (>60 ml/min/1.73 sqM); Potassium 4.5 mmol/L (3.5-5.1); Sodium 134 mmol/L (137-145)
[2016-08-31] MEDS ORDERED: LEVOTHYROXINE 75 MCG TAB PO SCH (06:30)
[2016-08-31 07:59] VITALS: BP 130/60; PULSE 74; RESP 20; TEMP 98
[2016-08-31] MEDS ORDERED: LORATADINE 10 MG TAB PO SCH (09:00)
[2016-08-31] MEDS ORDERED: ISOSORBIDE MONONITRATE ER 60 MG TAB.ER.24H PO SCH (09:00)
[2016-08-31] MEDS ORDERED: ASPIRIN 325 MG TAB PO SCH (09:00)
[2016-08-31] MEDS ORDERED: CLOPIDOGREL 75 MG TAB PO SCH (09:00)
[2016-08-31] MEDS: TIMOLOL 0.5% OPHTH DROPS 5 ML BTL LEFT EYE SCH (09:48)
[2016-08-31] MEDS: ATENOLOL 50 MG TAB PO SCH (09:48)
[2016-08-31] MEDS: RANOLAZINE 500 MG TAB.ER.12H PO SCH (09:48)
[2016-08-31] MEDS ORDERED: MULTIVITAMINS, THERA 1 EACH TAB PO SCH (12:00)
--- NOTE | 2016-08-31 12:12 | DS ---
DATE OF ADMISSION: 08/30/2016 DATE OF DISCHARGE: 08/31/2016 BRIEF HISTORY: This is a pleasant 71-year-old female patient who was admitted to the hospital yesterday and underwent a heart catheterization and successful percutaneous coronary intervention of the right coronary artery. The procedure was performed from the right groin, which is soft and nontender and without any bruises. The patient is going to be discharged home on dual antiplatelet therapy and I will follow up with the patient as an outpatient.
[2016-08-31] MEDS ORDERED: ATORVASTATIN 80 MG TAB PO SCH (21:00)
[2016-09-01] MEDS ORDERED: NON-FORMULARY DRUG (Ibandronate Sodium [Boniva] 150 MG) PO SCH (09:00)
== END 2016-08-31 10:15 | disposition home or self-care (01) ==
LOC: CATHCVL 06:00 → 6SEL 16:19 → CATHCVL 08-31 10:15
PROVIDERS: ATTEND Internal Medicine Interventional Cardiology
DX: I25.110 Atherosclerotic heart disease of native coronary artery with unstable angina pectoris (principal); T82.855A Stenosis of coronary artery stent, initial encounter; I25.82 Chronic total occlusion of coronary artery; I10 Essential (primary) hypertension; E78.5 Hyperlipidemia, unspecified; Z82.49 Family history of ischemic heart disease and other diseases of the circulatory system; Z79.82 Long term (current) use of aspirin; Z79.899 Other long term (current) drug therapy; Z88.5 Allergy status to narcotic agent; Z88.8 Allergy status to other drugs, medicaments and biological substances
CPT/HCPCS: 99152; 99153 ×7; 93454; 85347; 80048; 85025; C9602; C1769 ×6; C1725 ×2; C1894 ×2; C1887 ×2; C1874; C1714; J2250; J0360; Q9967; J2001; J1644 ×2; 33210; 93458

== ENCOUNTER → 2017-02-16 | Outpatient (CLI) | payer MEDICARE ==
--- NOTE | 2017-02-16 16:21 | BD ---
EXAMINATION TYPE: MG DEXA axial skeleton. DATE OF EXAM: 02/16/2017 COMPARISON: NONE CLINICAL HISTORY: Postmenopausal female Height: 61.5 IN Weight: 141 LBS FRAX RISK QUESTIONS: Alcohol (3 or more units per day): NO Family History (Parent hip fracture): YES MOTHER Glucocorticoids (More than 3mos): NO (Ex: prednisone, prednisolone, methylprednisolone, dexamethasone, and hydrocortisone). History of Fracture in Adulthood: YES LEFT ANKLE AGE 70 Secondary Osteoporosis: 1. Type 1 Diabetes: NO 2. Hyperthyroidism: NO 3. Menopause before 45: YES AGE 43 4. Malnutrition: NO 5. Chronic liver disease: NO Rheumatoid Arthritis: NO Current Tobacco Use: NO RISK FACTORS HISTORY OF: Surgery to Spine: YES CERVICAL FUSION When: IN THE 1970'S Family History of Osteoporosis: YES MOTHER Active: YES Postmenopausal woman: AGE 43 Take estrogen and/or progesterone medications: NOT NOW How long: PREMARIN AGE 43 - 59 MEDICATIONS: Thyroid Medications: YES Which medication: Levothyroxine How Lon + YEARS Osteoporosis Medications: YES Which medication: Boniva How Lon+ YEARS Additional Medications: BONIVA, LEVOTHYROXINE, CALCIUM, ASPIRIN, LOSARTAN, ATENOLOL, TIMOLOL EYE DROP S, CLOPIDOGREL, SINGULAIR, ZYRTEC,LIPITOR EXAM MEASUREMENTS: Bone mineral densitometry was performed using the [employer] System. Bone mineral density as measured about the Lumbar spine is: ----- L1-L4(G/cm2): 1.128 T Score Values are as follows: ----- L2: -1.7 ----- L3: 0.1 ----- L4: 1.0 ----- L1-L4: -0.4 Bone mineral density BASELINE Bone mineral density about the R hip (g/cm2): 0.762 Bone mineral density about the L hip (g/cm2): 0.783 T Score values are as follows: -----R Neck: -2.0 -----L Neck: -1.8 -----R Total: -1.3 -----L Total: -1.1 Bone mineral density BASELINE IMPRESSION: Osteopenia (T Score between -2.5 and -1) as noted by T score values There is slightly increased risk of fracture and the patient may be considered for treatment. Re-Screen 2-5 years. NOTE: T-SCORE=SD OF THE YOUNG ADULT MEAN.
== END | disposition home or self-care (01) ==
LOC: RADBDWWP 07:57
PROVIDERS: ATTEND Family Medicine
DX: M85.88 Other specified disorders of bone density and structure, other site (principal)
CPT/HCPCS: 77080

== ENCOUNTER → 2017-06-06 | Outpatient (CLI) | payer MEDICARE ==
--- NOTE | 2017-06-06 09:15 | CT ---
EXAMINATION TYPE: CT chest wo con DATE OF EXAM: 06/06/2017 COMPARISON: Prior chest CT May 06, 2016 and older study August 01, 2015. HISTORY: Solitary pulmonary nodule CT DLP: 203.7 mGycm. Automated Exposure Control for Dose Reduction was Utilized. TECHNIQUE: CT scan of the thorax is performed without IV contrast. FINDINGS: LUNGS: There is redemonstration of calcified 3 mm nodule right middle lobe on axial image 32. There i s stable 4 x 3 mm groundglass nodule on axial image 27. No new greater than 5 mm noncalcified parench ymal nodules or masses are evident. There is no pleural effusion or pneumothorax seen. The tracheob ronchial tree is patent. MEDIASTINUM: Lack of IV contrast is noted to limit evaluation for mediastinal and especially hilar ad enopathy. There are no definitive greater than 1 cm hilar or mediastinal lymph nodes. No cardiomega ly or pericardial effusion is seen. There is coronary artery calcification and/or coronary stents red emonstrated. OTHER: There is moderate multilevel spurring in the mid to lower thoracic spine. IMPRESSION: Stable small groundglass nodule right midlung not significantly changed in nearly 2 years time favors postinflammatory etiology. No new suspicious mass or adenopathy is noted. No acute pulmo nary process is evident.
== END | disposition home or self-care (01) ==
LOC: RADCTMAIN 08:13
PROVIDERS: ATTEND Internal Medicine
DX: R91.1 Solitary pulmonary nodule (principal); Z88.5 Allergy status to narcotic agent
CPT/HCPCS: 71250

== ENCOUNTER → 2019-01-02 | Outpatient (CLI) | payer MEDICARE ==
--- NOTE | 2019-01-02 11:25 | US ---
EXAMINATION TYPE: US venous doppler duplex LE RT DATE OF EXAM: 01/02/2019 11:08 AM COMPARISON: NONE CLINICAL HISTORY: M25.571 Right Leg Pain. Right calf pain and swelling post sprain injury to right le g/foot 2 weeks ago. SIDE PERFORMED: Right TECHNIQUE: The lower extremity deep venous system is examined utilizing real time linear array sonog sue with graded compression, doppler sonography and color-flow sonography. VESSELS IMAGED: Common Femoral Vein Deep Femoral Vein Greater Saphenous Vein * Femoral Vein Popliteal Vein Small Saphenous Vein * Proximal Calf Veins (* superficial vessels) There is normal flow, compressibility, vascular waveforms. Right Leg: Negative for DVT IMPRESSION: No evident deep venous thrombosis at or above the right knee.
== END | disposition home or self-care (01) ==
LOC: RADUSWWP 10:41
PROVIDERS: ATTEND Orthopaedic Surgery
DX: S93.401A Sprain of unspecified ligament of right ankle, initial encounter (principal); I80.9 Phlebitis and thrombophlebitis of unspecified site

== ENCOUNTER → 2021-04-15 | Outpatient (CLI) | payer MEDICARE ==
[2021-04-15 18:52] LABS: African American GFR (CKD) 61.4 (60.0-200.0); Albumin 4.4 g/dL (3.8-4.9); Albumin/Globulin Ratio 2.19 (1.60-3.17); Anion Gap 9.3 mmol/L (4.00-12.00); BUN/Creat Ratio 20.49 Ratio (12.00-20.00); Blood Urea Nitrogen 20.9 mg/dL (9.0-27.0); Calcium 9.7 mg/dL (8.7-10.3); Carbon Dioxide 23.1 mmol/L (21.6-31.8); Magnesium 1.9 mg/dL (1.5-2.4); Potassium 4.7 mmol/L (3.5-5.5); Total Bilirubin 0.5 mg/dL (0.30-1.20); Total Protein 6.4 g/dL (6.2-8.2)
[2021-04-15 19:21] LABS: HCT 36.8 % (37.2-46.3); HGB 12.4 g/dL (12.0-15.0); MCH 34.1 pg (27.0-32.0); MCHC 33.7 g/dL (32.0-37.0); MCV 101.1 fL (80.0-97.0); Mean Platelet Volume 9.6 fL (9.5-12.2); Platelet Count 235 X 10*3/uL (140-440); RBC 3.64 X 10*6/uL (4.10-5.20); WBC 13.63 X 10*3/uL (4.50-10.00)
[2021-04-15 19:22] LABS: Basophils # (M) 0 X 10*3/uL (0.00-0.10); Eosinophils # (M) 0 X 10*3/uL (0.04-0.35); Lymphocytes # (M) 9.27 X 10*3/uL (0.90-5.00); Monocytes # (M) 0.95 X 10*3/uL (0.20-1.00); Neutrophils # (M) 3.41 X 10*3/uL (2.00-8.90); Neutrophils % (M) 25 %; Smudge Cells PRESENT
== END | disposition home or self-care (01) ==
LOC: LABWHC1 10:37
PROVIDERS: ATTEND Nurse Practitioner Adult Health
DX: I10 Essential (primary) hypertension (principal)
CPT/HCPCS: 36415; 80053; 83735; 84443; 84481; 85025

== ENCOUNTER → 2021-04-22 | Outpatient (CLI) | payer MEDICARE | END | disposition home or self-care (01) | LOC: LABWHC1 12:07 | PROVIDERS: ATTEND Family Medicine | DX: Z20.822 Contact with and (suspected) exposure to COVID-19 (principal) | CPT/HCPCS: U0003; C9803 ==

== ENCOUNTER → 2023-02-17 | Outpatient (CLI) | payer MEDICARE ==
--- NOTE | 2023-02-17 09:41 | BD ---
EXAMINATION TYPE: Axial Bone Density DATE OF EXAM: 02/17/2023 CLINICAL HISTORY: 77 years old Female. ICD-10 CODE: M85.851 DISRD OF BONE DENSITY Height: 61in Weight: 151lb FRAX RISK QUESTIONS: Family History (Parent hip fracture): yes History of Fracture in Adulthood: yes Secondary Osteoporosis: 3. Menopause before 45: yes RISK FACTORS HISTORY OF: Surgery to Spine/Hip(right/left)/Wrist (right/left): cervical fusion When: in the 70's Family History of Osteoporosis: yes Active: yes Postmenopausal woman: yes Take estrogen and/or progesterone medications: yes, none current How long: about 10 years MEDICATIONS: Thyroid Medications: Which medication: Synthroid How Lon+ years Osteoporosis Medications: Which medication: Fosamax none current How Long: about 5 years Additional Medications: bp meds, cholesterol med, calcium with vitamin d Additional History: CLL EXAM MEASUREMENTS: Bone mineral densitometry was performed using the [employer] System. Bone mineral density as measured about the Lumbar spine is: ----- L1-L4(G/cm2): 1.164 T Score Values are as follows: ----- L1: -2.2 ----- L2: -1.6 ----- L3: 1.0 ----- L4: 1.3 ----- L1-L4: -0.1 Z Score Values are as follows: ----- L1: -0.5 ----- L2: 0.1 ----- L3: 2.7 ----- L4: 3.0 ----- L1-L4: 1.6 Bone mineral density has: Increased 2.3% since study of: 02-16-2017 Bone mineral density about the R hip (g/cm2): 0.834 Bone mineral density about the L hip (g/cm2): 0.870 T Score values are as follows: -----R Neck: -1.8 -----L Neck: -2.1 -----R Total: -1.4 -----L Total: -1.1 Z Score values are as follows: -----R Neck: 0.2 -----L Neck: -0.1 -----R Total: 0.5 -----L Total: 0.8 Bone mineral density has: Decreased -0.7% since study of: 02-16-2017 FRAX%s: The graph provided illustrates a 37.9% chance for a major osteoporotic fx and a 23.6% chance for the hips probability for fx in 10 years time. IMPRESSION: Osteopenia (T Score between -2.5 and -1). There is slightly increased risk of fracture and the patient may be considered for treatment. Re-Screen 2-5 years. NOTE: T-SCORE=SD OF THE YOUNG ADULT MEAN.
== END | disposition home or self-care (01) ==
LOC: RADBDWWP 08:40
PROVIDERS: ATTEND Internal Medicine
DX: M85.89 Other specified disorders of bone density and structure, multiple sites (principal); Z78.0 Asymptomatic menopausal state
CPT/HCPCS: 77080

== ENCOUNTER → 2023-12-23 | Outpatient (CLI) | payer MEDICARE ==
[2023-12-23 18:19] LABS: HGB 12.2 g/dL (12.0-15.0); MCH 32.6 pg (27.0-32.0); MCHC 33.9 g/dL (32.0-37.0); MCV 96.3 FL (80.0-97.0); NRBC Per 100 WBC 0 X 10*3/uL (0.00-0.01); Platelet Count 290 X 10*3/uL (140-440); RBC 3.74 X 10*6/uL (4.10-5.20); RDW 11.9 % (11.5-14.5); WBC 32.26 X 10*3/uL (4.50-10.00)
[2023-12-23 19:16] LABS: Blood Urea Nitrogen 12.5 mg/dL (9.0-27.0); Carbon Dioxide 21.4 mmol/L (21.6-31.8); Chloride 102 mmol/L (96-109); Potassium 4.4 mmol/L (3.5-5.5); Sodium 136 mmol/L (135-145)
== END | disposition home or self-care (01) ==
LOC: LABPAT 14:00
PROVIDERS: ATTEND Internal Medicine Interventional Cardiology
DX: Z01.812 Encounter for preprocedural laboratory examination (principal); I25.10 Atherosclerotic heart disease of native coronary artery without angina pectoris
CPT/HCPCS: 80051; 82565; 84520; 85027

== ENCOUNTER 2023-12-26 06:11 | Day surgery (SDC) | payer MEDICARE ==
[2023-12-20 14:10] VITALS: BMI 27.3
[~2023-12-26 06:11] MED LIST: ALPRAZolam 0.25 MG TAB PO PRN; ALPRAZolam 0.5 MG TAB PO PRN; NITROGLYCERIN SL TABS 0.4 MG TAB SUBLINGUAL PRN
[2023-12-26] MEDS: SODIUM CHLORIDE 0.9% 1,000 ML in EMPTY BAG 1 BAG IV SCH (06:40)
[2023-12-26] MEDS: IV FLUID CONTINUATION 1,000 ML IV ONE (06:41)
[2023-12-26] MEDS ORDERED: ASPIRIN 325 MG TAB PO ONE (07:00)
[2023-12-26 07:03] VITALS: RESP 16; TEMP 97.8
[2023-12-26] MEDS ORDERED: VERAPAMIL 2.5 MG/ML 2 ML AMP ONE (07:16)
[2023-12-26] MEDS ORDERED: HEPARIN SODIUM 1,000 UN/ML (10ML VL) ONE (07:16)
[2023-12-26] MEDS ORDERED: LIDOCAINE 1% INJ 10MG/ML (20 ML MDV) ONE (07:16)
[2023-12-26] MEDS ORDERED: fentaNYL (PF) 50 MCG/ML 2 ML AMP ONE (07:17)
[2023-12-26 07:38] LABS: Basophils # (A) 0.4 k/uL (0-0.2); Basophils % (A) 1 %; Eosinophils # (A) 0.3 k/uL (0-0.7); Eosinophils % (A) 1 %; HCT 37.1 % (34.0-46.0); HGB 13.2 gm/dL (11.4-16.0); Lymphocytes % (A) 81 %; MCH 34.8 pg (25.0-35.0); MCHC 35.6 g/dL (31.0-37.0); MCV 97.8 fL (80.0-100.0); Mean Platelet Volume 7.6; Monocytes # (A) 0.5 k/uL (0-1.0); Monocytes % (A) 2 %; Neutrophils # (A) 4.1 k/uL (1.3-7.7); Neutrophils % (A) 12 %; Platelet Count 290 k/uL (150-450); RBC 3.79 m/uL (3.80-5.40); RDW 12.1 % (11.5-15.5); WBC 34.3 k/uL (3.8-10.6)
[2023-12-26 07:39] LABS: Lymphocytes # (A) 27.8 k/uL (1.0-4.8)
[2023-12-26] MEDS: LIDOCAINE 1% INJ 10MG/ML (20 ML MDV) SQ ONE (07:47)
[2023-12-26] MEDS: MIDAZOLAM 2 MG/2 ML VIAL IVP ONE (07:47)
[2023-12-26] MEDS: fentaNYL (PF) 50 MCG/1 ML VIAL IVP ONE (07:47)
[2023-12-26] MEDS: VERAPAMIL 2.5 MG/ML 4 ML VIAL INTRAARTER ONE (07:50)
[2023-12-26 07:51] LABS: African American GFR (CKD) 76 (>60 ml/min/1.73 sqM); Anion Gap 8 mmol/L; Blood Urea Nitrogen 11 mg/dL (7-17); Calcium 9.9 mg/dL (8.4-10.2); Carbon Dioxide 21 mmol/L (22-30); Chloride 104 mmol/L (98-107); Glucose 101 mg/dL (74-99); Non-African American GFR(CKD) 66 (>60 ml/min/1.73 sqM); Potassium 4.3 mmol/L (3.5-5.1); Sodium 133 mmol/L (137-145)
[2023-12-26] MEDS: HEPARIN SODIUM 1,000 UN/ML (10ML VL) IVP ONE (07:56)
[2023-12-26] MEDS ORDERED: RX INFO: IV CONTRAST WAS GIVEN 1 EACH MISC MISCELLANE PRN (08:08)
--- NOTE | 2023-12-26 08:13 | P.PCN ---
Date of Procedure: 12/26/23 Operative Findings: Cardiac catheterization Performing physician Sanjay Marques MD Procedure performed Selective right and left coronary angiogram and left heart catheterization Ultrasound-guided access of the right radial artery Indication Chest discomfort concerning for angina in this 78-year-old female patient with known CAD and prior stenting of the RCA and LAD Complication None Level of sedation Moderate with sedation length of 19 minutes Procedure description After obtaining informed consent the patient was brought to the cardiac Oracle Bpm Consultant. Right radial artery was cannulated using micropuncture technique under ultrasound guidance the micropuncture wire passed easily and placed 6 Colombian 11 cm sheath at the right radial artery subsequently patient was given 5000's of heparin IV and 2 mg of verapamil intra-arterial. Selective right and left coronary angiogram performed using JR4 angio 3.5 catheter and left heart catheterization was performed using 6 Colombian pigtail catheter with the procedure was completed with no complication Selective coronary angiogram The RCA is a large-caliber vessel and a dominant vessel with patent stent in the midportion and intermediate disease involving the ostial of the PDA branch of the RCA The left main is calcified with mild disease only The LAD large-caliber vessel and is stented in the proximal to midportion with patent stent and no high-grade stenosis was identified The left circumflex large-caliber vessel nondominant vessel with severe disease involving the ostial with a hazy/calcified lesion but TAWANNA-3 flow Hemodynamics The LVEDP was was 5 mmHg with no significant gradient was identified across aortic valve Conclusion Calcified right and left coronary system Intermediate disease involving the ostia of the PDA branch of the RCA Severe disease involving the ostial left circumflex with calcified/hazy lesion with ATWANNA-3 flow Postprocedure management Giving the above anatomy I advise maximize medical treatment. Consider PCI of the LCx if the patient remains symptomatic in spite of maximized medical treatment
[2023-12-26] MEDS: IOPAMIDOL-370 100ML BTL INTRATHECA ONE (08:14)
[2023-12-26] MEDS: HEPARIN SODIUM,PORCINE 10,000 UNIT in SODIUM CHLORIDE 0.9% 1,000 ML IRRIGATION ONE (08:15)
[2023-12-26] MEDS: HEPARIN SODIUM,PORCINE (1 ML) 2,500 UNIT in SODIUM CHLORIDE 0.9% 250 ML IRRIGATION ONE (08:15)
[2023-12-26] MEDS ORDERED: SODIUM CHLORIDE 0.9% 1,000 ML IV SCH (08:15)
[2023-12-26 11:50] VITALS: BP 142/72; PULSE 72
== END 2023-12-26 11:50 | disposition home or self-care (01) ==
LOC: CATHCVL 06:11
PROVIDERS: ATTEND Internal Medicine Interventional Cardiology
DX: I25.10 Atherosclerotic heart disease of native coronary artery without angina pectoris (principal); I25.5 Ischemic cardiomyopathy; I10 Essential (primary) hypertension; E78.5 Hyperlipidemia, unspecified; Z95.5 Presence of coronary angioplasty implant and graft; Z88.8 Allergy status to other drugs, medicaments and biological substances; Z79.899 Other long term (current) drug therapy; Z79.82 Long term (current) use of aspirin
CPT/HCPCS: 93458; 80048; 85025; 99152; C1769 ×2; C1894; J2250; J1644 ×3; J2001; Q9967; J3010

== ENCOUNTER → 2024-01-06 | Outpatient (CLI) | payer MEDICARE ==
[2024-01-06 14:15] LABS: African American GFR (CKD) 75 (>60 ml/min/1.73 sqM); Blood Urea Nitrogen 12 mg/dL (7-17); Non-African American GFR(CKD) 65 (>60 ml/min/1.73 sqM)
--- NOTE | 2024-01-06 16:17 | CT ---
EXAMINATION TYPE: CT angio chest DATE OF EXAM: 01/06/2024 COMPARISON: 06/06/2017 HISTORY: chest pain CT DLP: 482.9 mGycm CONTRAST: CTA thoracic aorta with 3-D reconstruction is performed and without and with IV Contrast, patient inj ected with 100 ml mL of Isovue 370. Contrast CTA of the thoracic aorta was performed from the lung apex through the upper abdomen. 3D re construction imaging obtained at a separate workstation. CT Chest: THORACIC AORTA: No evidence for thoracic aortic aneurysm. Mild atheromatous changes seen. There is n o evidence for dissection or periaortic collection. LUNGS: The lungs are clear and free of infiltrate or atelectasis. No pulmonary nodule or mass is det ected. No pleural effusion or CT evidence of interstitial lung disease. MEDIASTINUM: No evidence for mediastinal hematoma. The heart is not enlarged. No evidence for med iastinal mass or adenopathy. HILAR STRUCTURES: No evidence for mass. No hilar adenopathy is appreciated. OTHER: No significant abnormality. IMPRESSION- No evidence for thoracic aortic aneurysm
== END | disposition home or self-care (01) ==
LOC: RADCTMAIN 13:16
PROVIDERS: ATTEND Internal Medicine Interventional Cardiology
DX: R07.9 Chest pain, unspecified (principal)
CPT/HCPCS: 82565; 84520; 71275; 36415; Q9967

== ENCOUNTER → 2024-01-06 | Outpatient (CLI) | payer MEDICARE ==
--- NOTE | 2024-01-08 14:50 | MM ---
Reason for Exam: Screening (asymptomatic). Last mammogram was performed 10 year(s) and 7 month(s) ago. Patient History: Menarche at age 11. First Full-Term at age 24. Left ovary removed at age 41. Right ovary removed at age 41. Hysterectomy at age 41. Postmenopausal. Estrogen for 19 years, 4 months, from age 41 until age 60. Maternal aunt had ovarian cancer, age 19. Risk Values: Domi 5 year model risk: 1.9%. NCI Lifetime model risk: 3.1%. Prior Study Comparison: 01/12/2006 Bilateral Screening Mammogram, [facility]. 01/18/2007 Bilateral Screening Mammogram, [facility]. 03/26/2008 Bilateral Screening Mammogram, [facility]. 05/01/2009 Bilateral Screening Mammogram, [facility]. 06/06/2013 Bilateral Screening Mammogram, [facility]. Tissue Density: The breasts are heterogeneously dense, which may obscure small masses. Findings: Analyzed By CAD. The pattern is symmetrical. Multiple benign-appearing spherical and round calcifications. Some nodularities in the medial left breast. Diagnostic imaging is recommended. No suspicious groups of microcalcifications, spiculated or lobular masses, architectural distortion or other secondary signs of malignancy are mammographically apparent. Overall Assessment: Incomplete: need additional imaging evaluation, BI-RAD 0 Management: Diagnostic Mammogram of the left breast. A negative mammogram report should not preclude additional follow up of suspicious palpable abnormalities. Patient should continue monthly self breast exam. A clinical breast exam by your physician is recommended on an annual basis and results should be correlated with mammographic findings. Note on Domi scores and lifetime risk: 1. A Domi score greater than 3% is considered moderate risk. If this is the case, consider specialist referral to assess eligibility for a risk reducing agent. 2. If overall lifetime risk for the development of breast cancer is 20% or higher, the patient may qualify for future screening with alternating mammogram and breast MRI. Electronically signed and approved by: Joseph Mcguire D.O. Radiologis
== END | disposition home or self-care (01) ==
LOC: RADMAMWWP 12:39
PROVIDERS: ATTEND Internal Medicine
DX: Z12.31 Encounter for screening mammogram for malignant neoplasm of breast (principal); R92.333 Mammographic heterogeneous density, bilateral breasts; Z78.0 Asymptomatic menopausal state
CPT/HCPCS: 77063; 77067

== ENCOUNTER 2024-01-08 10:32 | Observation (INO) | payer MEDICARE ==
--- NOTE | 2024-01-08 11:06 | XR ---
EXAMINATION TYPE: XR chest 2V DATE OF EXAM: 01/08/2024 10:59 AM CLINICAL INDICATION:Female, 78 years old with history of syncope; [facility] COMPARISON: Chest radiographs from 08/04/2016 TECHNIQUE: XR chest 2V Frontal view of the chest. FINDINGS: Lungs/Pleura: There is no evidence of pleural effusion, focal consolidation, or pneumothorax. Pulmonary vascularity: Unremarkable. Heart/mediastinum: Cardiomediastinal silhouette is unremarkable. Atherosclerotic calcifications are seen in the aorta. Musculoskeletal: No acute osseous pathology. IMPRESSION: No acute cardiopulmonary disease/process.
[2024-01-08] MEDS: SODIUM CHLORIDE 0.9% 500 ML 500 ML IV ONE (11:18)
--- NOTE | 2024-01-08 11:20 | ED ---
General Adult HPI - General Chief complaint: Syncope Stated complaint: Syncope Time Seen by Provider: 01/08/24 10:34 Source: patient, EMS, RN notes reviewed, old records reviewed Mode of arrival: EMS Limitations: no limitations - History of Present Illness Initial comments: 78 yo female presenting with near syncopal episode while at [facility]. Patient was standing, began to feel lightheaded and did lie down. She was responsive during the entire episode and never fully lost consciousness according to her . She felt dizzy and became diaphoretic. No associated chest pain or dyspnea. Patient had recent heart cath approximately 2 weeks ago. The recommendations after this cath were medical management without stenting placed at that time. Patient states she was started on new medication which she is uncertain of the name and had her Imdur dose increased to 60 mg. - Related Data Home Medications Medication Instructions Recorded Confirmed Atorvastatin [Lipitor] 80 mg PO HS 08/04/16 12/26/23 Calcium Carbonate [Calcium] 600 mg PO HS 08/04/16 12/26/23 Cetirizine HCl [Zyrtec] 10 mg PO DAILY 08/04/16 12/26/23 Isosorbide Mononitrate ER [Imdur] 30 mg PO DAILY 08/04/16 12/26/23 Levothyroxine Sodium [Synthroid] 75 mcg PO DAILY 08/04/16 12/26/23 Losartan Potassium [Cozaar] 100 mg PO HS 08/04/16 12/26/23 Montelukast Sodium [Singulair] 10 mg PO HS 08/04/16 12/26/23 Multivitamins, Thera [Multivitamin 1 tab PO DAILY 08/04/16 12/26/23 (formulary)] Timolol [Betimol 0.5% Ophth Soln] 1 drop BOTH EYES BID 08/04/16 12/26/23 Nitroglycerin Sl Tabs [Nitrostat] 0.4 mg SUBLINGUAL DIRECTED PRN 08/25/16 12/20/23 Aspirin 81 mg PO DAILY 12/20/23 12/26/23 Metoprolol Succinate (ER) [Toprol 100 mg PO DAILY 12/20/23 12/26/23 XL] Donepezil HCl [Aricept ODT] 5 mg PO HS 12/26/23 12/26/23 Omeprazole 20 mg PO DAILY 12/26/23 12/26/23 amLODIPine [Norvasc] 5 mg PO DAILY 12/26/23 12/26/23 Allergies Allergy/AdvReac Type Severity Reaction Status Date / Time morphine AdvReac Unknown Nausea & Verified 01/08/24 10:40 Vomiting, Dreams. codeine AdvReac Nausea & Verified 01/08/24 10:40 Vomiting Review of Systems ROS Statement: Those systems with pertinent positive or pertinent negative responses have been documented in the HPI. ROS Other: All systems not noted in ROS Statement are negative. Past Medical History Past Medical History: Coronary Artery Disease (CAD), Chest Pain / Angina, Hyperlipidemia, Hypertension, Pneumonia, Syncope, Thyroid Disorder Additional Past Medical History / Comment(s): recent stress test,SOB w/ tighteness in chest,HYPOGLYCEMIA, PAST MIGRAINES, LT EYE BLIND, leakage OF URINE, CONSTIPATION, SEASONAL ALG,CLL-follows w/ Dr Brenner History of Any Multi-Drug Resistant Organisms: None Reported Past Surgical History: Appendectomy, Back Surgery, Bowel Resection, Heart Catheterization With Stent, Hysterectomy Additional Past Surgical History / Comment(s): CERVICAL FUSIONS, RT CATARACT, MULTIPLE LT EYE SURGERYS, LT HAND INDEX FINGER BENIGN GROWTH REMOVED, PAPO OVARIAN CYST-1 RUTPURED, BOWEL RESECTION D/T BLOCKAGE, RT EYE SX FOR MACULA HOLE, 5 total CARDIAC STENTS. Past Anesthesia/Blood Transfusion Reactions: Family History of Problems w/ Anesthesia, Postoperative Nausea & Vomiting (PONV) Additional Past Anesthesia/Blood Transfusion Reaction / Comment(s): mother-PONV. no hx blood transfusion Date of Last Stent Placement:: Past Psychological History: No Psychological Hx Reported Smoking Status: Never smoker Past Alcohol Use History: None Reported Past Drug Use History: None Reported - Past Family History Mother Family Medical History: Osteoarthritis (OA), Rheumatoid Arthritis (RA) Additional Family Medical History / Comment(s): DIEDT CONTROLLED DIABETES. PT'S AUNT FROM OVARIAN CANCER. Father Family Medical History: Cancer, Myocardial Infarction (MA) Additional Family Medical History / Comment(s): AT AGE 52 HAD MA THEN 11 YEARS LATER FROM LEUKEMIA General Exam Limitations: no limitations General appearance: alert, in no apparent distress Head exam: Present: atraumatic, normocephalic Eye exam: Present: normal appearance, PERRL ENT exam: Present: normal exam Neck exam: Present: normal inspection. Absent: tenderness, meningismus Respiratory exam: Present: normal lung sounds bilaterally. Absent: respiratory distress, wheezes Cardiovascular Exam: Present: normal rhythm, bradycardia GI/Abdominal exam: Present: soft. Absent: distended Extremities exam: Present: other (Left radial artery thrill) Neurological exam: Present: alert, oriented X3, CN II-XII intact, normal gait. Absent: motor sensory deficit Psychiatric exam: Present: normal affect, normal mood Skin exam: Present: warm, dry, intact Course Vital Signs 01/08/24 01/08/24 01/08/24 10:34 11:15 12:15 Temperature 97.7 F 97.6 F Pulse Rate 54 L 60 58 L Respiratory 16 17 17 Rate Blood Pressure 147/67 146/65 144/61 O2 Sat by Pulse 96 97 97 Oximetry 01/08/24 13:05 Temperature Pulse Rate 58 L Respiratory 17 Rate Blood Pressure 152/73 O2 Sat by Pulse 98 Oximetry Medical Decision Making - Medical Decision Making Was pt. sent in by a medical professional or institution (, PA, VICE PRESIDENT UNDERWRITING, urgent care, hospital, or detention...) When possible be specific @ -No Did you speak to anyone other than the patient for history (EMS, parent, family, police, friend...)? What history was obtained from this source @Paramedics and patient's Did you review nursing and triage notes (agree or disagree)? Why? @ -I reviewed and agree with nursing and triage notes Were old charts reviewed (outside hosp., previous admission, EMS record, old EKG, old radiological studies, urgent care reports/EKG's, detention records)? Report findings @ -No old charts were reviewed Differential Syncope: Valvular disease, hypertrophic cardiomyopathy, pulmonary embolism, tamponade, tachycardia, bradycardia, MA, hypovolemia, hemorrhage, dissection, anemia, intracranial hemorrhage, seizure, hypoglycemia, carbon monoxide poisoning, this is not meant to be an all-inclusive list. EKG interpreted by me (3pts min.). @ -Sinus bradycardia rate of 56, MS interval 178, QRS duration 98, QTc [address] segment elevation X-rays interpreted by me (1pt min.). @ -Chest x-ray negative for acute cardiopulmonary disease CT interpreted by me (1pt min.). @ -None done U/S interpreted by me (1pt. min.). @ -None done What testing was considered but not performed or refused? (CT, X-rays, U/S, labs)? Why? @ -None What meds were considered but not given or refused? Why? @ -None Did you discuss the management of the patient with other professionals (professionals i.e. , PA, VICE PRESIDENT UNDERWRITING, lab, RT, psych nurse, administrator social welfare, stage set up worker, teacher, aoc director combat operations officer, leather case finisher)? Give summary @ -No Was smoking cessation discussed for >3mins.? @ -No Was critical care preformed (if so, how long)? @ -No Were there social determinants of health that impacted care today? How? (Homelessness, low income, unemployed, alcoholism, drug addiction, transportation, low edu. Level, literacy, decrease access to med. care, senior living, re hab)? @ -No Was there de-escalation of care discussed even if they declined (Discuss DNR or withdrawal of care, Hospice)? DNR status @ -No What co-morbidities impacted this encounter? (DM, HTN, Smoking, COPD, CAD, Cancer, CVA, ARF, Chemo, Hep., AIDS, mental health diagnosis, sleep apnea, morbid obesity)? @ -[Coronary artery disease Was patient admitted / discharged? Hospital course, mention meds given and route, prescriptions, significant lab abnormalities, going to OR and other pertinent info. @ -78-year-old female with near syncopal episode at [facility]. No injury. No chest pain. No dyspnea. No palpitations. Patient is in sinus rhythm. Chest x-ray is clear. She has a CBC showing chronic leukocytosis. Electrolytes are normal. Troponin is negative. Urinalysis consistent with nitrate positive urinary tract infection. Urine culture is obtained. Patient started on IV fluids and IV antibiotics. Patient will be admitted for monitoring, hydration, antibiotics. Case discussed with Dr. Kenney who will admit. Undiagnosed new problem with uncertain prognosis? @ -No Drug Therapy requiring intensive monitoring for toxicity (Heparin, Nitro, Insulin, Cardizem)? @ -No Were any procedures done? @ -No Diagnosis/symptom? @Near syncope, dehydration, UTI Acute, or Chronic, or Acute on Chronic? @ -Acute Uncomplicated (without systemic symptoms) or Complicated (systemic symptoms)? @ -Default Side effects of treatment? @ -No Exacerbation, Progression, or Severe Exacerbation? @ -No Poses a threat to life or bodily function? How? (Chest pain, USA, MA, pneumonia, PE, COPD, DKA, ARF, appy, cholecystitis, CVA, Diverticulitis, Homicidal, Suicidal, threat to staff... and all critical care pts) @ -[Yes, arrhythmia, hypovolemia, sepsis - Lab Data Result diagrams: 01/08/24 10:52 01/08/24 12:14 Lab Results 01/08/24 01/08/24 01/08/24 Range/Units 10:52 10:52 10:52 WBC 30.9 H (3.8-10.6) k/uL RBC 3.49 L (3.80-5.40) m/uL Hgb 12.2 (11.4-16.0) gm/dL Hct 34.9 (34.0-46.0) % MCV 99.8 (80.0-100.0) fL MCH 34.8 (25.0-35.0) pg MCHC 34.9 (31.0-37.0) g/dL RDW 12.3 (11.5-15.5) % Plt Count 268 (150-450) k/uL MPV 7.6 Neutrophils % Not Reportable Neutrophils % (Manual) 12 % Lymphocytes % Not Reportable Lymphocytes % (Manual) 88 % Monocytes % Not Reportable Eosinophils % Not Reportable Basophils % Not Reportable Neutrophils # Not Reportable Neutrophils # (Manual) 3.71 (1.3-7.7) k/uL Lymphocytes # Not Reportable Lymphocytes # (Manual) 27.19 H (1.0-4.8) k/uL Monocytes # Not Reportable Eosinophils # Not Reportable Basophils # Not Reportable Nucleated RBCs 0 (0-0) /100 WBC Manual Slide Review Performed PT 11.1 (10.0-12.5) sec INR 1.0 (<1.2) APTT 24.3 (22.0-30.0) sec Sodium (137-145) mmol/L Potassium (3.5-5.1) mmol/L Chloride (98-107) mmol/L Carbon Dioxide (22-30) mmol/L Anion Gap mmol/L BUN (7-17) mg/dL Creatinine (0.52-1.04) mg/dL Est GFR (CKD-EPI)AfAm (>60 ml/min/1.73 sqM) Est GFR (CKD-EPI)NonAf (>60 ml/min/1.73 sqM) Glucose (74-99) mg/dL Plasma Lactic Acid Harshad (0.7-2.0) mmol/L Calcium (8.4-10.2) mg/dL Magnesium (1.6-2.3) mg/dL Total Bilirubin (0.2-1.3) mg/dL AST (14-36) U/L ALT (4-34) U/L Alkaline Phosphatase (38-126) U/L Troponin I (0.000-0.034) ng/mL Total Protein (6.3-8.2) g/dL Albumin (3.5-5.0) g/dL Urine Color Yellow Urine Appearance Cloudy H (Clear) Urine pH 5.5 (5.0-8.0) Ur Specific Veteran 1.030 (1.001-1.035) Urine Protein 1+ H (Negative) Urine Glucose (UA) Negative (Negative) Urine Ketones Negative (Negative) Urine Blood Negative (Negative) Urine Nitrite Positive H (Negative) Urine Bilirubin Negative (Negative) Urine Urobilinogen <2.0 (<2.0) mg/dL Ur Leukocyte Esterase Large H (Negative) Urine RBC 11 H (0-5) /hpf Urine WBC >182 H (0-5) /hpf Urine WBC Clumps Few H (None) /hpf Ur Squamous Epith Cells 7 H (0-4) /hpf Urine Bacteria Occasional H (None) /hpf Hyaline Casts 76 H (0-2) /lpf Urine Mucus Few H (None) /hpf 01/08/24 01/08/24 01/08/24 Range/Units 10:52 12:14 12:31 WBC (3.8-10.6) k/uL RBC (3.80-5.40) m/uL Hgb (11.4-16.0) gm/dL Hct (34.0-46.0) % MCV (80.0-100.0) fL MCH (25.0-35.0) pg MCHC (31.0-37.0) g/dL RDW (11.5-15.5) % Plt Count (150-450) k/uL MPV Neutrophils % Neutrophils % (Manual) % Lymphocytes % Lymphocytes % (Manual) % Monocytes % Eosinophils % Basophils % Neutrophils # Neutrophils # (Manual) (1.3-7.7) k/uL Lymphocytes # Lymphocytes # (Manual) (1.0-4.8) k/uL Monocytes # Eosinophils # Basophils # Nucleated RBCs (0-0) /100 WBC Manual Slide Review PT (10.0-12.5) sec INR (<1.2) APTT (22.0-30.0) sec Sodium 132 L (137-145) mmol/L Potassium 4.6 (3.5-5.1) mmol/L Chloride 106 (98-107) mmol/L Carbon Dioxide 20 L (22-30) mmol/L Anion Gap 6 mmol/L BUN 11 (7-17) mg/dL Creatinine 0.79 (0.52-1.04) mg/dL Est GFR (CKD-EPI)AfAm 83 (>60 ml/min/1.73 sqM) Est GFR (CKD-EPI)NonAf 72 (>60 ml/min/1.73 sqM) Glucose 111 H (74-99) mg/dL Plasma Lactic Acid Harshad 0.7 (0.7-2.0) mmol/L Calcium 9.2 (8.4-10.2) mg/dL Magnesium 1.9 (1.6-2.3) mg/dL Total Bilirubin 0.7 (0.2-1.3) mg/dL AST 25 (14-36) U/L ALT 19 (4-34) U/L Alkaline Phosphatase 50 (38-126) U/L Troponin I 0.012 (0.000-0.034) ng/mL Total Protein 6.0 L (6.3-8.2) g/dL Albumin 3.9 (3.5-5.0) g/dL Urine Color Urine Appearance (Clear) Urine pH (5.0-8.0) Ur Specific Veteran (1.001-1.035) Urine Protein (Negative) Urine Glucose (UA) (Negative) Urine Ketones (Negative) Urine Blood (Negative) Urine Nitrite (Negative) Urine Bilirubin (Negative) Urine Urobilinogen (<2.0) mg/dL Ur Leukocyte Esterase (Negative) Urine RBC (0-5) /hpf Urine WBC (0-5) /hpf Urine WBC Clumps (None) /hpf Ur Squamous Epith Cells (0-4) /hpf Urine Bacteria (None) /hpf Hyaline Casts (0-2) /lpf Urine Mucus (None) /hpf Disposition Clinical Impression: Syncope, UTI (urinary tract infection) Disposition: ADMITTED IP TO THIS HOSP Condition: Stable Is patient prescribed a controlled substance at d/c from ED?: No Referrals: Evangelina Kenney MD [Primary Care Provider] - 1-2 days Time of Disposition: 13:32
[2024-01-08 11:21] LABS: HCT 34.9 % (34.0-46.0); HGB 12.2 gm/dL (11.4-16.0); MCH 34.8 pg (25.0-35.0); MCHC 34.9 g/dL (31.0-37.0); MCV 99.8 fL (80.0-100.0); Mean Platelet Volume 7.6; Platelet Count 268 k/uL (150-450); RBC 3.49 m/uL (3.80-5.40); RDW 12.3 % (11.5-15.5); WBC 30.9 k/uL (3.8-10.6)
[2024-01-08 11:28] LABS: Appearance,Urine Cloudy (Clear); Bacteria,Urine Occasional /hpf; Bilirubin,Urine Negative (Negative); Blood,Urine Negative (Negative); Color,Urine Yellow; Glucose,Urine (UA) Negative (Negative); Hyaline Casts,Urine 76 /lpf (0-2); Ketones,Urine Negative (Negative); Leukocyte Esterase,Urine Large (Negative); Mucus,Urine Few /hpf; Nitrite,Urine Positive (Negative); PH, Urine 5.5 (5.0-8.0); Protein,Urine 1+ (Negative); RBC,Urine 11 /hpf (0-5); Squamous Epithelial Cell,Urine 7 /hpf (0-4); Urobilinogen,Urine <2.0 mg/dL (<2.0); WBC,Urine >182 /hpf (0-5)
[2024-01-08 11:34] LABS: Lymphocytes # (M) 27.19 k/uL (1.0-4.8); Neutrophils # (M) 3.71 k/uL (1.3-7.7); Neutrophils % (M) 12 %; Nucleated Red Blood Cells 0 /100 WBC (0-0); Total Cells Counted 100
[2024-01-08 11:38] LABS: Partial Thromboplastin Time 24.3 sec (22.0-30.0); Prothrombin Time 11.1 sec (10.0-12.5)
[2024-01-08 12:37] LABS: ALT 19 U/L (4-34); AST 25 U/L (14-36); African American GFR (CKD) 83 (>60 ml/min/1.73 sqM); Albumin 3.9 g/dL (3.5-5.0); Alkaline Phosphatase 50 U/L (38-126); Anion Gap 6 mmol/L; Blood Urea Nitrogen 11 mg/dL (7-17); Calcium 9.2 mg/dL (8.4-10.2); Carbon Dioxide 20 mmol/L (22-30); Chloride 106 mmol/L (98-107); Glucose 111 mg/dL (74-99); Magnesium 1.9 mg/dL (1.6-2.3); Non-African American GFR(CKD) 72 (>60 ml/min/1.73 sqM); Potassium 4.6 mmol/L (3.5-5.1); Sodium 132 mmol/L (137-145); Total Bilirubin 0.7 mg/dL (0.2-1.3)
[2024-01-08] MEDS: cefTRIAXone IN SWFI 1,000 MG/10 ML SYRINGE IVP STA (12:38)
[2024-01-08] MEDS: SODIUM CHLORIDE 0.9% 1,000 ML IV SCH (12:38)
[2024-01-08] MEDS ORDERED: ACETAMINOPHEN TAB 325 MG TAB PO PRN (13:29)
[2024-01-08] MEDS ORDERED: NALOXONE 0.4 MG/ML 1 ML VIAL IV PRN (13:29)
[2024-01-08] MEDS ORDERED: NITROGLYCERIN SL TABS 0.4 MG TAB SUBLINGUAL PRN (14:08)
--- NOTE | 2024-01-08 14:20 | P.HPIM ---
History of Present Illness H&P Date: 01/08/24 Chief Complaint: Presyncope HISTORY OF PRESENT ILLNESS: This is a 78-year-old female with a previous medical history significant for coronary artery disease status post PCI of the LAD initially January 21, 2015 followed by left heart catheterization with PCI of the RCA in August 30, 2016, and left heart catheterization in November 29, 2023 with PCI of the LAD, hypertension and hypertensive cardiovascular disease, hyperlipidemia, hypothyroidism, chronic lymphocytic leukemia, osteopenia of the right hip, GERD, spondylosis of the cervical spine, COPD, allergic rhinitis, patient was recently seen by Dr. Logan underwent left heart catheterization that was done on December 29, 2023, and that heart catheterization showed evidence of calcified right and left coronary system with patent stented area to the LAD as well as RCA, however there was evidence of ostial lesion of the PDA of the RCA and of the left circumflex artery but it was nondominant vessel with a TAWANNA III flow he was advised at that time to continue with aggressive and maximize medical therapy and the patient continues to have some issues that she will need to go for a left heart catheterization and trying to attempt to angioplasty the ostial lesion of the LCx. Patient was at chills, and she had a presyncopal episode, therefore she was brought into the emergency department at [facility] evaluation, her laboratory evaluation beside her CLL was negative except for urinary tract infection, she was started on IV fluid resuscitation, and she was started on IV antibiotic, she was admitted to the hospital for evaluation and treatment. REVIEW OF SYSTEMS: Constitutional: No documented fever, no chills, no night sweats. No weight change. No weakness, fatigue or lethargy. No daytime sleepiness. EENT: No headache. 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 No loss of Hearing, no ringing in the ears, no dizziness. No nasal drainage or congestion. No epistaxis. No sore throat. Lungs: No shortness of breath, no cough, no sputum production. No wheezing. Reports dyspnea with activity. Cardiovascular: No chest pain, no lower extremity edema. No palpitations. No paroxysmal nocturnal dyspnea. No orthopnea. No lightheadedness or dizziness. No syncopal episodes. Abdominal: Reports abdominal pain. No nausea, vomiting. No diarrhea. No constipation. No bloody or tarry stools reports loss of appetite. Genitourinary: No dysuria, increased frequency, urgency. No urinary retention. Musculoskeletal: No myalgias. No muscle weakness, no gait dysfunction, no frequent falls. No back pain. positive for neck pain. Integumentary: No wounds, no lesions. No rash or pruritus. No unusual bruising. No change in hair or nails. Neurologic: No aphasia. No facial droop. No change in mentation. No head injury. No headache. No paralysis. No paresthesia, positive for syncope Psychiatric: No depression. No anxiety. No mood swings. Endocrine: No abnormal blood sugars. No weight change. PAST MEDICAL HISTORY: Coronary artery disease status post PCI of the LAD 11/29/2023 and 01/21/2015 and of the RCA 08/30/2016. Hypertension and hypertensive cardiovascular disease Mixed hyperlipidemia. Hypothyroidism. Chronic lymphocytic leukemia. Osteopenia of the right hip. GERD with esophagitis. Spondylosis of the cervical spine with multiple levels with without myelopathy COPD mild. Allergic rhinitis. PAST SURGICAL HISTORY: Appendectomy. Right cataract surgery. Partial colectomy due to redundant colon 1975. Colonoscopy 2016 Colonoscopy 07/29/2023 Bilateral tubal ligation Complete hysterectomy 1986 Left heart catheterization with PCI of the LAD 01/21/2015 Left heart catheterization with PCI of the RCA 08/30/2016. Left heart catheterization with PCI of the LAD 11/29/2023 Left heart catheterization 12/29/2023 no angioplasty Left detached retina post multiple surgery [blind in the left eye] Anterior cervical discectomy fusion C3-C7 1970 SOCIAL HISTORY: Patient is a lifelong non-smoker she denies any alcohol ingestion, no drug use or abuse. FAMILY HISTORY: Father at the age of 65 from acute lymphoid leukemia and CAD mother at the age of 83 from rheumatoid arthritis osteoarthritis and had hip fracture patient had 2 brothers 1 at the age of 72 from emphysema the other one drowned at the age of 16 patient has 2 sons 1 with degenerative disc disease of the cervical spine and the other 1 is healthy patient had 3 maternal uncles with colon cancer PHYSICAL EXAMINATION: General: 78-year-old female laying down in bed in no apparent distress. HEENT: Head is atraumatic, normocephalic, pupils were equal round reactive to light and recommendation, extraocular muscle movement were intact, sclera nonicteric, conjunctivae were pale, mucous membranes of the mouth are somewhat dry. Neck: Supple, no JVP, normal carotid upstroke bilaterally, no lymphadenopathy. Chest: Decreased breath sounds at the bases, few rhonchi, no expiratory wheezes, no chest wall tenderness, no intercostal retractions. Heart: First heart sound is normal, second heart sound is normal there is systolic ejection murmur 2/6 located in the left sternal border. Abdomen: Soft, nontender, nondistended, positive bowel sounds. Extremities: There is no edema no calf tenderness DP +2 bilaterally. Neurologic examination: Patient is awake alert and oriented x3, cranial nerves II-12 appear grossly intact, muscle power were 5 out of 5 in upper extremities and 5 out of 5 in bilateral lower extremities, deep tendon reflexes normal bilaterally. ASSESSMENT AND PLAN: 1. Syncope. Start the patient on IV fluid, monitor the patient on telemetry over the 24 hours, rule out any cardiac arrhythmia, monitor the patient very closely. Patient was recently started on Ranexa 500 mg orally twice every day along with donepezil monitor for QT prolongation. 2. UTI with SIRS. Urine culture, blood culture, IV fluids, start the patient on ceftriaxone 1 g piggyback every 24 hours. 3. Coronary artery disease status post PCI of the LAD and RCA. With recent left heart catheterization that was on December 29, 2023 that showed stable calcified vessels of the left and right system along with a new ostial lesion of the PDA of the RCA and ostial lesion of the LCx, but with a TAWANNA III flow, with a normal left ventricular end-diastolic pressure, continue with maximize medical therapy as recommended by cardiology patient has been on atorvastatin 80 mg orally once every day, she has been on aspirin 81 mg once every day, isosorbide mononitrate 60 mg orally once every day, continue metoprolol succinate 100 mg orally once every day, added Ranexa 500 mg orally twice every day continue with nitroglycerin as needed. 4. Hypertension and hypertensive cardiovascular disease. Continue patient on amlodipine 5 mg once every day, metoprolol 100 mg orally once every day and losartan 100 mg orally once every day monitor the patient blood pressure very closely. 5. Mixed hyperlipidemia. Continue atorvastatin 80 mg once every day, monitor lipid panel, keep LDL less than 55. 6. Hypothyroidism. Continue patient on levothyroxine 75 mcg orally once every day. 7. GERD with esophagitis. Continue omeprazole 20 mg orally once every day. 8. Allergic rhinitis. Continue patient on cetirizine 10 mg orally once every day, 9. Osteopenia of the right hip. Continue calcium 1200 mg orally once every day as well as vitamin D supplement. 10. Mild COPD. Stable at this time. 11. Spondylosis of the cervical spine status post ACDF of C3-C7. 12. Vascular dementia. Continue patient on donepezil 5 mg orally once every day. Monitor for prolonged QT with Ranexa 13. DVT prophylaxis. Lovenox 40 mg subcutaneous every 24 hours. 14. GI prophylaxis. Continue patient on PPI. 15. Observation. 16. Full code. Past Medical History Past Medical History: Coronary Artery Disease (CAD), Chest Pain / Angina, Hyperlipidemia, Hypertension, Pneumonia, Syncope, Thyroid Disorder Additional Past Medical History / Comment(s): recent stress test,SOB w/ tighteness in chest,HYPOGLYCEMIA, PAST MIGRAINES, LT EYE BLIND, leakage OF URINE, CONSTIPATION, SEASONAL ALG,CLL-follows w/ Dr Brenner History of Any Multi-Drug Resistant Organisms: None Reported Past Surgical History: Appendectomy, Back Surgery, Bowel Resection, Heart Catheterization With Stent, Hysterectomy Additional Past Surgical History / Comment(s): CERVICAL FUSIONS, RT CATARACT, MULTIPLE LT EYE SURGERYS, LT HAND INDEX FINGER BENIGN GROWTH REMOVED, PAPO OVARIAN CYST-1 RUTPURED, BOWEL RESECTION D/T BLOCKAGE, RT EYE SX FOR MACULA HOLE, 5 total CARDIAC STENTS. Past Anesthesia/Blood Transfusion Reactions: Family History of Problems w/ An esthesia, Postoperative Nausea & Vomiting (PONV) Additional Past Anesthesia/Blood Transfusion Reaction / Comment(s): mother-PONV. no hx blood transfusion Date of Last Stent Placement:: Past Psychological History: No Psychological Hx Reported Smoking Status: Never smoker Past Alcohol Use History: None Reported Past Drug Use History: None Reported - Past Family History Mother Family Medical History: Osteoarthritis (OA), Rheumatoid Arthritis (RA) Additional Family Medical History / Comment(s): DIEDT CONTROLLED DIABETES. PT'S AUNT FROM OVARIAN CANCER. Father Family Medical History: Cancer, Myocardial Infarction (ND) Additional Family Medical History / Comment(s): AT AGE 52 HAD ND THEN 11 YEARS LATER FROM LEUKEMIA Medications and Allergies Home Medications Medication Instructions Recorded Confirmed Type Atorvastatin [Lipitor] 80 mg PO HS 08/04/16 01/08/24 History Calcium Carbonate [Calcium] 600 mg PO HS 08/04/16 01/08/24 History Cetirizine HCl [Zyrtec] 10 mg PO DAILY 08/04/16 01/08/24 History Levothyroxine Sodium [Synthroid] 75 mcg PO DAILY 08/04/16 01/08/24 History Multivitamins, Thera [Multivitamin 1 tab PO DAILY 08/04/16 01/08/24 History (formulary)] Timolol [Betimol 0.5% Ophth Soln] 1 drop BOTH EYES BID 08/04/16 01/08/24 History Nitroglycerin Sl Tabs [Nitrostat] 0.4 mg SL Q5M PRN 08/25/16 01/08/24 History Omeprazole 20 mg PO DAILY 12/26/23 01/08/24 History amLODIPine [Norvasc] 5 mg PO DAILY 12/26/23 01/08/24 History Aspirin EC [Ecotrin Low Dose] 81 mg PO DAILY 01/08/24 01/08/24 History Donepezil [Aricept] 5 mg PO HS 01/08/24 01/08/24 History Isosorbide Mononitrate ER [Imdur] 60 mg PO DAILY 01/08/24 01/08/24 History Losartan Potassium 100 mg PO HS 01/08/24 01/08/24 History Metoprolol Succinate (ER) [Toprol 100 mg PO DAILY 01/08/24 01/08/24 History Xl] Ranolazine [Ranexa] 500 mg PO BID 01/08/24 01/08/24 History Allergies Allergy/AdvReac Type Severity Reaction Status Date / Time morphine AdvReac Unknown Nausea & Verified 01/08/24 10:40 Vomiting, Dreams. codeine AdvReac Nausea & Verified 01/08/24 10:40 Vomiting Physical Exam Vitals: Vital Signs Temp Pulse Resp BP Pulse Ox 01/08/24 13:05 58 L 17 152/73 98 01/08/24 12:15 97.6 F 58 L 17 144/61 97 01/08/24 11:15 60 17 146/65 97 01/08/24 10:34 97.7 F 54 L 16 147/67 96 Intake and Output 01/07/24 01/08/24 01/08/24 22:59 06:59 14:59 Other: Weight 64.319 kg Results CBC & Chem 7: 01/08/24 10:52 01/08/24 12:14 Labs: Abnormal Lab Results - Last 24 Hours (Table) 01/08/24 01/08/24 01/08/24 Range/Units 10:52 10:52 12:14 WBC 30.9 H (3.8-10.6) k/uL RBC 3.49 L (3.80-5.40) m/uL Lymphocytes # (Manual) 27.19 H (1.0-4.8) k/uL Sodium 132 L (137-145) mmol/L Carbon Dioxide 20 L (22-30) mmol/L Glucose 111 H (74-99) mg/dL Total Protein 6.0 L (6.3-8.2) g/dL Urine Appearance Cloudy H (Clear) Urine Protein 1+ H (Negative) Urine Nitrite Positive H (Negative) Ur Leukocyte Esterase Large H (Negative) Urine RBC 11 H (0-5) /hpf Urine WBC >182 H (0-5) /hpf Urine WBC Clumps Few H (None) /hpf Ur Squamous Epith Cells 7 H (0-4) /hpf Urine Bacteria Occasional H (None) /hpf Hyaline Casts 76 H (0-2) /lpf Urine Mucus Few H (None) /hpf
[2024-01-08] MEDS: TIMOLOL 0.5% OPHTH DROPS 5 ML BTL BOTH EYES SCH (20:46)
[2024-01-08] MEDS: RANOLAZINE 500 MG TAB.ER.12H PO SCH (20:47)
[2024-01-08] MEDS: CALCIUM CARBONATE 500 MG CHEWABLE PO SCH (20:47)
[2024-01-08] MEDS: ATORVASTATIN 80 MG TAB PO SCH (20:47)
[2024-01-08] MEDS: DONEPEZIL 5 MG TAB PO SCH (20:47)
[2024-01-08] MEDS: LOSARTAN 50 MG TAB PO SCH (20:47)
[2024-01-09] MEDS: LEVOTHYROXINE 75 MCG TAB PO SCH (05:13)
[2024-01-09] MEDS: PANTOPRAZOLE 40 MG TABLET PO SCH (05:13)
[2024-01-09 08:28] VITALS: RESP 16
[2024-01-09] MEDS: amLODIPine 5 MG TAB PO SCH (09:11)
[2024-01-09] MEDS: ENOXAPARIN 40 MG/0.4 ML SYRINGE SQ SCH (09:11)
[2024-01-09] MEDS: ASPIRIN 81 MG PO SCH (09:11)
[2024-01-09] MEDS: MULTIVITAMINS, THERA 1 EACH TAB PO SCH (09:11)
[2024-01-09] MEDS: LORATADINE 10 MG TAB PO SCH (09:11)
[2024-01-09] MEDS: METOPROLOL SUCCINATE (ER) 100 MG TAB.ER.24H PO SCH (09:44)
[2024-01-09] MEDS: ISOSORBIDE MONONITRATE ER 60 MG TAB.ER.24H PO SCH (09:44)
[2024-01-09 10:31] LABS: ALT 15 U/L (8-44); AST 18 U/L (13-35); Albumin 4.1 g/dL (3.8-4.9); Albumin/Globulin Ratio 2.73 Ratio (1.60-3.17); Alkaline Phosphatase 56 U/L (41-126); Blood Urea Nitrogen 9.9 mg/dL (9.0-27.0); Carbon Dioxide 20.9 mmol/L (21.6-31.8); Chloride 108 mmol/L (96-109); Globulin 1.5 g/dL (1.6-3.3); Glucose 93 mg/dL (70-110); Potassium 4.2 mmol/L (3.5-5.5); Sodium 137 mmol/L (135-145); Total Bilirubin 0.4 mg/dL (0.3-1.2); Total Protein 5.6 g/dL (6.2-8.2)
--- NOTE | 2024-01-09 11:15 | P.CRDCN ---
History of Present Illness Consult date: 01/09/24 Reason for Consult (text): Syncope History of present illness: This is a 78-year-old female patient of Dr. Marques with past medical history of co ronary artery disease with prior stenting of the RCA and LAD, ischemic cardiomyopathy, hypertension, dyslipidemia, valvular heart disease with aortic and mitral regurgitation, lower extremity PAD. Patient also has history of chronic lymphocytic leukemia. On 12/26/2023, patient underwent cardiac cath eterization with Dr. Marques that revealed calcified right and left coronary system, intermediate disease involving the ostia of the PDA branch of the RCA, severe disease involving the ostial left circumflex with calcified/hazy lesion with TIMI3 flow. Plan was for maximizing medical therapy and consider PCI of the left circumflex the patient remains symptomatic in spite of medical treatment. Patient was started on Ranexa and increased isosorbide mononitrate to 60 mg daily. We have been asked to evaluate the patient for syncope. Patient states that she was at [facility] and passed out. She states she developed a cold sweat became weak and passed out. She denies having any chest pain and no chest pain since medication changes were made. Prior to her cardiac catheterization she was having some chest pressure and shortness of breath which have resolved. Blood pressure 131/72, heart rate in the 60s, pulse ox 96% on room air. Orthostatic vital signs negative. EKG: Sinus rhythm with no acute ST-T wave changes, heart rate 56 bpm Chest x-ray: No acute process. Laboratory studies: WBC 30.9, hemoglobin 12.2, sodium 137, potassium 4.2, BUN 9 and creatinine 1. Troponins negative x 2. Urinalysis nitrate positive, leukoesterase large, WBCs greater than 182, bacteria occasional. D-dimer 0.35 Home cardiac medications: Amlodipine 5 mg daily, aspirin 81 mg daily, atorvastatin 80 mg at bedtime, Imdur 60 mg daily, losartan 100 mg at bedtime, Toprol XL 100 mg daily, Nitrostat as needed, Ranexa 500 mg twice daily, also on levothyroxine 75 mcg daily. Echocardiogram performed in the office on 10/25/2023 revealed EF of 50%, moderate left ventricular hypertrophy, grade 1 diastolic dysfunction. Trace aortic regurgitation. Moderate mitral regurgitation, myxomatous mitral valve. Mild to moderate tricuspid regurgitation. Normal pulmonary artery systolic pressure. Mild to moderate pulmonic regurgitation. Review Of Systems: At the time of my exam: CONSTITUTIONAL: Denies fever or chills. HEENT: Denies blurred vision, vision changes, or eye pain. Denies hemoptysis CARDIOVASCULAR: Denies chest pain. Denies orthopnea. Denies PND. Denies palpitations RESPIRATORY: Denies shortness of breath. GASTROINTESTINAL: Denies abdominal pain. Denies nausea or vomiting. HEMATOLOGIC: Denies bleeding disorders. GENITOURINARY: Denies any blood in urine. SKIN: Denies puritis. Denies rash. Physical examination: Gen: This is a 78-year-old female in no acute distress. VS: reviewed HEENT: Head is atraumatic, normocephalic. Pupils equal, round. Sclerae is anicteric. NECK: Supple. No JVD. LUNGS: Clear to auscultation. No wheezes or rhonchi. No intercostal retractions. HEART: Regular rate and rhythm. Soft systolic murmur. ABDOMEN: Soft No tenderness. EXTREMITIES: No pedal edema. No calf tenderness. NEUROLOGICAL: Patient is awake, alert and oriented x3. Assessment: Syncopal episode History of coronary artery disease with previous stenting of the RCA and LAD with recent cardiac catheterization 12/25 with plan for medical management Ischemic cardiomyopathy with most recent EF of 50% Hypertension Dyslipidemia Valvular heart disease with mitral regurgitation, aortic regurgitation, tricu spid regurgitation Lower extremity PAD CLL Plan: Continue patient's home cardiac medications No need to repeat echocardiogram as this was done in October Monitor telemetry and orthostatic vital signs Further recommendations to follow based upon clinical course Thank you kindly for this consultation. Nurse practitioner note has been reviewed, I agree with documented findings and plan of care. Patient was seen and examined. Past Medical History Past Medical History: Coronary Artery Disease (CAD), Chest Pain / Angina, Hyperlipidemia, Hypertension, Pneumonia, Syncope, Thyroid Disorder Additional Past Medical History / Comment(s): recent stress test,SOB w/ tighteness in chest,HYPOGLYCEMIA years ago, PAST MIGRAINES, LT EYE BLIND, leakage OF URINE, CONSTIPATION, SEASONAL ALG,CLL-follows w/ Dr Brenner History of Any Multi-Drug Resistant Organisms: None Reported Past Surgical History: Appendectomy, Back Surgery, Bowel Resection, Heart Catheterization With Stent, Hysterectomy Additional Past Surgical History / Comment(s): CERVICAL FUSIONS, RT CATARACT, MULTIPLE LT EYE SURGERYS, LT HAND INDEX FINGER BENIGN GROWTH REMOVED, PAPO OVARIAN CYST-1 RUTPURED, BOWEL RESECTION D/T BLOCKAGE, RT EYE SX FOR MACULA HOLE, 5 total CARDIAC STENTS. Past Anesthesia/Blood Transfusion Reactions: Family History of Problems w/ Anesthesia, Postoperative Nausea & Vomiting (PONV) Additional Past Anesthesia/Blood Transfusion Reaction / Comment(s): mother-PONV. no hx blood transfusion Date of Last Stent Placement:: Past Psychological History: No Psychological Hx Reported Smoking Status: Never smoker Past Alcohol Use History: None Reported Past Drug Use History: None Reported - Past Family History Mother Family Medical History: Osteoarthritis (OA), Rheumatoid Arthritis (RA) Additional Family Medical History / Comment(s): DIEDT CONTROLLED DIABETES. PT'S AUNT FROM OVARIAN CANCER. Father Family Medical History: Cancer, Myocardial Infarction (TX) Additional Family Medical History / Comment(s): AT AGE 52 HAD TX THEN 11 YEARS LATER FROM LEUKEMIA Medications and Allergies Home Medications Medication Instructions Recorded Confirmed Type Atorvastatin [Lipitor] 80 mg PO HS 08/04/16 01/08/24 History Calcium Carbonate [Calcium] 600 mg PO HS 08/04/16 01/08/24 History Cetirizine HCl [Zyrtec] 10 mg PO DAILY 08/04/16 01/08/24 History Levothyroxine Sodium [Synthroid] 75 mcg PO DAILY 08/04/16 01/08/24 History Multivitamins, Thera [Multivitamin 1 tab PO DAILY 08/04/16 01/08/24 History (formulary)] Timolol [Betimol 0.5% Ophth Soln] 1 drop BOTH EYES BID 08/04/16 01/08/24 History Nitroglycerin Sl Tabs [Nitrostat] 0.4 mg SL Q5M PRN 08/25/16 01/08/24 History Omeprazole 20 mg PO DAILY 12/26/23 01/08/24 History amLODIPine [Norvasc] 5 mg PO DAILY 12/26/23 01/08/24 History Aspirin EC [Ecotrin Low Dose] 81 mg PO DAILY 01/08/24 01/08/24 History Donepezil [Aricept] 5 mg PO HS 01/08/24 01/08/24 History Isosorbide Mononitrate ER [Imdur] 60 mg PO DAILY 01/08/24 01/08/24 History Losartan Potassium 100 mg PO HS 01/08/24 01/08/24 History Metoprolol Succinate (ER) [Toprol 100 mg PO DAILY 01/08/24 01/08/24 History Xl] Ranolazine [Ranexa] 500 mg PO BID 01/08/24 01/08/24 History Allergies Allergy/AdvReac Type Severity Reaction Status Date / Time morphine AdvReac Unknown Nausea & Verified 01/08/24 10:40 Vomiting, Dreams. codeine AdvReac Nausea & Verified 01/08/24 10:40 Vomiting Physical Exam Vitals: Vital Signs Temp Pulse Pulse Resp BP BP BP 01/09/24 02:00 98.4 F 67 17 131/72 01/08/24 18:17 98.1 F 62 14 144/72 01/08/24 14:55 97.5 F L 70 14 132/70 01/08/24 14:37 97.8 F 61 16 144/62 01/08/24 14:04 60 17 143/61 01/08/24 13:05 58 L 17 152/73 01/08/24 12:15 97.6 F 58 L 17 144/61 01/08/24 11:15 60 17 146/65 01/08/24 10:34 97.7 F 54 L 16 147/67 Pulse Ox 01/09/24 02:00 96 01/08/24 18:17 99 01/08/24 14:55 98 01/08/24 14:37 98 01/08/24 14:04 97 01/08/24 13:05 98 01/08/24 12:15 97 01/08/24 11:15 97 01/08/24 10:34 96 Intake and Output 01/08/24 01/09/24 01/09/24 22:59 06:59 14:59 Other: Voiding Method Toilet # Voids 1 4 Results 01/08/24 10:52 01/09/24 06:10 Cardiac Enzymes 01/08/24 01/08/24 Range/Units 10:52 12:14 AST 25 (14-36) U/L Troponin I 0.012 (0.000-0.034) ng/mL Coagulation 01/08/24 Range/Units 10:52 PT 11.1 (10.0-12.5) sec APTT 24.3 (22.0-30.0) sec CBC 01/08/24 Range/Units 10:52 WBC 30.9 H (3.8-10.6) k/uL RBC 3.49 L (3.80-5.40) m/uL Hgb 12.2 (11.4-16.0) gm/dL Hct 34.9 (34.0-46.0) % Plt Count 268 (150-450) k/uL Comprehensive Metabolic Panel 01/08/24 Range/Units 12:14 Sodium 132 L (137-145) mmol/L Potassium 4.6 (3.5-5.1) mmol/L Chloride 106 (98-107) mmol/L Carbon Dioxide 20 L (22-30) mmol/L BUN 11 (7-17) mg/dL Creatinine 0.79 (0.52-1.04) mg/dL Glucose 111 H (74-99) mg/dL Calcium 9.2 (8.4-10.2) mg/dL AST 25 (14-36) U/L ALT 19 (4-34) U/L Alkaline Phosphatase 50 (38-126) U/L Total Protein 6.0 L (6.3-8.2) g/dL Albumin 3.9 (3.5-5.0) g/dL Current Medications Generic Name Dose Route Start Last Admin Trade Name Freq PRN Reason Stop Dose Admin Acetaminophen 650 mg 01/08/24 13:29 Acetaminophen Tab 325 Mg Tab PO Q6HR PRN Mild Pain or Fever > 100.5 Amlodipine Besylate 5 mg 01/09/24 09:00 Amlodipine 5 Mg Tab PO DAILY [facility] Aspirin 81 mg 01/09/24 09:00 Aspirin 81 Mg PO DAILY [facility] Atorvastatin Calcium 80 mg 01/08/24 21:00 01/08/24 20:47 Atorvastatin 80 Mg Tab PO 80 mg HS MIKE Administration Calcium Carbonate/Glycine 500 mg 01/08/24 21:00 01/08/24 20:47 Calcium Carbonate 500 Mg Chewable PO 500 mg HS MIKE Administration Donepezil HCl 5 mg 01/08/24 21:00 01/08/24 20:47 Donepezil 5 Mg Tab PO 5 mg HS MIKE Administration Enoxaparin Sodium 40 mg 01/09/24 09:00 Enoxaparin 40 Mg/0.4 Ml Syringe SQ DAILY MIKE Sodium Chloride 1,000 mls @ 75 mls/hr 01/08/24 12:15 01/09/24 05:15 Saline 0.9% IV 75 mls/hr .[id number] MIKE Administration Ceftriaxone Sodium 1 gm/ 50 mls @ 100 mls/hr 01/09/24 09:00 Sodium Chloride IVPB Q24HR [facility] Protocol Isosorbide Mononitrate 60 mg 01/09/24 09:00 Isosorbide Mononitrate Er 60 Mg Tab.Er.24h PO DAILY [facility] Levothyroxine Sodium 75 mcg 01/09/24 06:30 01/09/24 05:13 Levothyroxine 75 Mcg Tab PO 75 mcg DAILY@0630 [facility] Administration Loratadine 10 mg 01/09/24 09:00 Loratadine 10 Mg Tab PO DAILY [facility] Losartan Potassium 100 mg 01/08/24 21:00 01/08/24 20:47 Losartan 50 Mg Tab PO 100 mg HS [facility] Administration Metoprolol Succinate 100 mg 01/09/24 09:00 Metoprolol Succinate (Er) 100 Mg Tab.Er.24h PO DAILY [facility] Multivitamins 1 each 01/09/24 09:00 Multivitamins, Thera 1 Each Tab PO DAILY [facility] Naloxone HCl 0.2 mg 01/08/24 13:29 Naloxone 0.4 Mg/Ml 1 Ml Vial IV Q2M PRN Opioid Reversal Nitroglycerin 0.4 mg 01/08/24 14:08 Nitroglycerin Sl Tabs 0.4 Mg Tab SUBLINGUAL Q5M PRN Chest Pain Pantoprazole Sodium 40 mg 01/09/24 07:30 01/09/24 05:13 Pantoprazole 40 Mg Tablet PO 40 mg [id number] [facility] Administration Ranolazine 500 mg 01/08/24 21:00 01/08/24 20:47 Ranolazine 500 Mg Tab.Er.12h PO 500 mg BID [facility] Administration Timolol Maleate 1 drops 01/08/24 21:00 01/08/24 20:46 Timolol 0.5% Ophth Drops 5 Ml Btl BOTH EYES 1 drops BID MIKE Administration Intake and Output 01/08/24 01/09/24 01/09/24 22:59 06:59 14:59 Other: Voiding Method Toilet # Voids 1 4 01/08/24 10:52 01/08/24 12:14
[2024-01-09 11:27] LABS: Basophils # (M) 0 X 10*3/uL (0.00-0.10); Eosinophils # (M) 0.25 X 10*3/uL (0.04-0.35); HCT 33.6 % (37.2-46.3); HGB 11.3 g/dL (12.0-15.0); Lymphocytes # (M) 22.19 X 10*3/uL (0.90-5.00); MCH 33.3 pg (27.0-32.0); MCHC 33.6 g/dL (32.0-37.0); MCV 99.1 FL (80.0-97.0); Mean Platelet Volume 9.3 FL (9.5-12.2); NRBC Per 100 WBC 0 X 10*3/uL (0.00-0.01); Neutrophils # (M) 1.99 X 10*3/uL (1.80-7.70); Neutrophils % (M) 8 %; Platelet Count 244 X 10*3/uL (140-440); RBC 3.39 X 10*6/uL (4.10-5.20); RDW 11.9 % (11.5-14.5); WBC 24.93 X 10*3/uL (4.50-10.00)
--- NOTE | 2024-01-09 13:17 | P.PN ---
Subjective Progress Note Date: 01/09/24 HISTORY OF PRESENT ILLNESS: This is a 78-year-old female with a previous medical history signif icant for coronary artery disease status post PCI of the LAD initially January 21, 2015 followed by left heart catheterization with PCI of the RCA in August 30, 2016, and left heart catheterization in November 29, 2023 with PCI of the LAD, hypertension and hypertensive cardiovascular disease, hyperlipidemia, hypothyroidism, chronic lymphocytic leukemia, osteopenia of the right hip, GERD, spondylosis of the cervical spine, COPD, allergic rhinitis, patient was recently seen by Dr. Logan underwent left heart catheterization that was done on December 29, 2023, and that heart catheterization showed evidence of calcified right and left coronary system with patent stented area to the LAD as well as RCA, however there was evidence of ostial lesion of the PDA of the RCA and of the left circumflex artery but it was nondominant vessel with a TAWANNA III flow he was advised at that time to continue with aggressive and maximize medical therapy and the patient continues to have some issues that she will need to go for a left heart catheterization and trying to attempt to angioplasty the ostial lesion of the LCx. Patient was at chills, and she had a presyncopal episode, therefore she was brought into the emergency department at [facility] for evaluation, her laboratory evaluation beside her CLL was negative except for urinary tract infection, she was started on IV fluid resuscitation, and she was started on IV antibiotic, she was admitted to the hospital for evaluation and treatment. 01/08: Patient is laying down in bed in no apparent distress, she is feeling generally weak, she has no chest pain or shortness of breath, she has not had any dizzy spells, she has no abdominal pain, nausea vomiting or diarrhea, she has been started on IV antibiotic in the form of ceftriaxone 1 g IV piggyback every 24 hours for UTI, culture still pending, keep the patient in the hospital for another 24 hours then she can be discharged home in the next 24 hours she may need to have a 30-day event monitor. REVIEW OF SYSTEMS: Constitutional: No documented fever, no chills, no night sweats. No weight nails ge. No weakness, fatigue or lethargy. No daytime sleepiness. EENT: No headache. 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 No loss of Hearing, no ringing in the ears, no dizziness. No nasal drainage or congestion. No epistaxis. No sore throat. Lungs: No shortness of breath, no cough, no sputum production. No wheezing. Reports dyspnea with activity. Cardiovascular: No chest pain, no lower extremity edema. No palpitations. No paroxysmal nocturnal dyspnea. No orthopnea. No lightheadedness or dizziness. No syncopal episodes. Abdominal: Reports abdominal pain. No nausea, vomiting. No diarrhea. No constipation. No bloody or tarry stools reports loss of appetite. Genitourinary: No dysuria, increased frequency, urgency. No urinary retention. Musculoskeletal: No myalgias. No muscle weakness, no gait dysfunction, no frequent falls. No back pain. positive for neck pain. Integumentary: No wounds, no lesions. No rash or pruritus. No unusual bruisi ng. No change in hair or nails. Neurologic: No aphasia. No facial droop. No change in mentation. No head injury. No headache. No paralysis. No paresthesia, positive for syncope Psychiatric: No depression. No anxiety. No mood swings. Endocrine: No abnormal blood sugars. No weight change. PHYSICAL EXAMINATION: General: 78-year-old female laying down in bed in no apparent distress. HEENT: Head is atraumatic, normocephalic, pupils were equal round reactive to light and recommendation, extraocular muscle movement were intact, sclera nonicteric, conjunctivae were pale, mucous membranes of the mouth are somewhat dry. Neck: Supple, no JVP, normal carotid upstroke bilaterally, no lymphadenopathy. Chest: Decreased breath sounds at the bases, few rhonchi, no expiratory wheezes, no chest wall tenderness, no intercostal retractions. Heart: First heart sound is normal, second heart sound is normal there is systolic ejection murmur 2/6 located in the left sternal border. Abdomen: Soft, nontender, nondistended, positive bowel sounds. Extremities: There is no edema no calf tenderness DP +2 bilaterally. Neurologic examination: Patient is awake alert and oriented x3, cranial nerves II-12 appear grossly intact, muscle power were 5 out of 5 in upper extremities and 5 out of 5 in bilateral lower extremities, deep tendon reflexes normal bilaterally. ASSESSMENT AND PLAN: 1. Syncope. continue patient on IV fluid, monitor the patient on telemetry over the 24 hours, rule out any cardiac arrhythmia, monitor the patient very closely. Patient was recently started on Ranexa 500 mg orally twice every day along with donepezil monitor for QT prolongation. Patient was seen in cons ultation by cardiology for 2. UTI with SIRS. Urine culture, blood culture, IV fluids, start the patient on ceftriaxone 1 g piggyback every 24 hours. Await the result of the culture. 3. Coronary artery disease status post PCI of the LAD and RCA. With recent left heart catheterization that was on December 29, 2023 that showed stable calcified vessels of the left and right system along with a new ostial lesion of the PDA of the RCA and ostial lesion of the LCx, but with a TAWANNA III flow, with a normal left ventricular end-diastolic pressure, continue with maximize medical therapy as recommended by cardiology patient has been on atorvastatin 80 mg orally once every day, she has been on aspirin 81 mg once every day, isosorbide mononitrate 60 mg orally once every day, continue metoprolol succinate 100 mg orally once every day, added Ranexa 500 mg orally twice every day continue with nitroglycerin as needed. 4. Hypertension and hypertensive cardiovascular disease. Continue patient on amlodipine 5 mg once every day, metoprolol 100 mg orally once every day and losartan 100 mg orally once every day monitor the patient blood pressure very closely. 5. Mixed hyperlipidemia. Continue atorvastatin 80 mg once every day, monitor lipid panel, keep LDL less than 55. 6. Hypothyroidism. Continue patient on levothyroxine 75 mcg orally once every day. 7. GERD with esophagitis. Continue omeprazole 20 mg orally once every day. 8. Allergic rhinitis. Continue patient on cetirizine 10 mg orally once every day, 9. Osteopenia of the right hip. Continue calcium 1200 mg orally once every day as well as vitamin D supplement. 10. Mild COPD. Stable at this time. 11. Spondylosis of the cervical spine status post ACDF of C3-C7. 12. Vascular dementia. Continue patient on donepezil 5 mg orally once every day. Monitor for prolonged QT with Ranexa 13. DVT prophylaxis. Lovenox 40 mg subcutaneous every 24 hours. 14. GI prophylaxis. Continue patient on PPI. 15. Likely home in the next 24 hours. Objective - Vital Signs Vital signs: Vital Signs Temp 98.2 F 01/09/24 07:00 Pulse 76 01/09/24 07:00 Resp 16 01/09/24 07:00 BP 148/65 01/09/24 07:00 Pulse Ox 100 01/09/24 11:34 FiO2 Intake & Output 01/08/24 01/09/24 01/09/24 18:59 06:59 18:59 Intake Total 118 Balance 118 Weight 64.319 kg Intake: Oral 118 Other: Voiding Method Toilet Toilet # Voids 4 1 - Labs CBC & Chem 7: 01/09/24 06:10 01/09/24 06:10 Labs: Abnormal Lab Results - Last 24 Hours (Table) 01/09/24 01/09/24 Range/Units 06:10 06:10 WBC 24.93 H (4.50-10.00) X 10*3/uL RBC 3.39 L (4.10-5.20) X 10*6/uL Hgb 11.3 L (12.0-15.0) g/dL Hct 33.6 L (37.2-46.3) % MCV 99.1 H (80.0-97.0) FL MCH 33.3 H (27.0-32.0) pg MPV 9.3 L (9.5-12.2) FL Lymphocytes # (Manual) 22.19 H (0.90-5.00) X 10*3/uL Carbon Dioxide 20.9 L (21.6-31.8) mmol/L Est GFR (CKD-EPI) 57 L (>=60) BUN/Creatinine Ratio 9.90 L (12.00-20.00) Ratio Total Protein 5.6 L (6.2-8.2) g/dL Globulin 1.5 L (1.6-3.3) g/dL
[2024-01-10 07:29] VITALS: BP 147/69; PULSE 68; TEMP 97.7
--- NOTE | 2024-01-10 10:25 | P.PN ---
Subjective Progress Note Date: 01/10/24 Reason for Consult (text): Syncope History of present illness: This is a 78-year-old female patient of Dr. Marques with past medical history of coronary artery disease with prior stenting of the RCA and LAD, ischemic cardiomyopathy, hypertension, dyslipidemia, valvular heart disease with aortic and mitral regurgitation, lower extremity PAD. Patient also has history of chronic lymphocytic leukemia. On 12/26/2023, patient underwent cardiac catheterization with Dr. Marques that revealed calcified right and left coronary system, intermediate disease involving the ostia of the PDA branch of the RCA, severe disease involving the ostial left circumflex with calcified/hazy lesion with TIMI3 flow. Plan was for maximizing medical therapy and consider PCI of the left circumflex the patient remains symptomatic in spite of medical treatment. Patient was started on Ranexa and increased isosorbide mononitrate to 60 mg daily. We have been asked to evaluate the patient for syncope. Patient states that she was at [employer] and passed out. She states she developed a cold sweat became weak and passed out. She denies having any chest pain and no chest pain since medication changes were made. Prior to her cardiac catheterization she was having some chest pressure and shortness of breath which have resolved. Blood pressure 131/72, heart rate in the 60s, pulse ox 96% on room air. Orthostatic vital signs negative. EKG: Sinus rhythm with no acute ST-T wave changes, heart rate 56 bpm Chest x-ray: No acute process. Laboratory studies: WBC 30.9, hemoglobin 12.2, sodium 137, potassium 4.2, BUN 9 and creatinine 1. Troponins negative x 2. Urinalysis nitrate positive, leukoesterase large, WBCs greater than 182, bacteria occasional. D-dimer 0.35 Home cardiac medications: Amlodipine 5 mg daily, aspirin 81 mg daily, atorvastatin 80 mg at bedtime, Imdur 60 mg daily, losartan 100 mg at bedtime, Toprol XL 100 mg daily, Nitrostat as needed, Ranexa 500 mg twice daily, also on levothyroxine 75 mcg daily. Echocardiogram performed in the office on 10/25/2023 revealed EF of 50%, moderate left ventricular hypertrophy, grade 1 diastolic dysfunction. Trace aortic regurgitation. Moderate mitral regurgitation, myxomatous mitral valve. Mild to moderate tricuspid regurgitation. Normal pulmonary artery systolic pressure. Mild to moderate pulmonic regurgitation. 01/09 Patient is seen and examined. She states she has been up to the bathroom and also to shower and no further episodes of syncope. Patient states the episode at [employer] happened when she stood up to sitting on him. She states has been instructed to get up from a sitting to a standing position slowly. Orthostatics obtained yesterday were mildly positive. Physical examination: Gen: This is a 78-year-old female in no acute distress. VS: reviewed HEENT: Head is atraumatic, normocephalic. Pupils equal, round. Sclerae is anicteric. NECK: Supple. No JVD. LUNGS: Clear to auscultation. No wheezes or rhonchi. No intercostal retractions. HEART: Regular rate and rhythm. Soft systolic murmur. ABDOMEN: Soft No tenderness. EXTREMITIES: No pedal edema. No calf tenderness. NEUROLOGICAL: Patient is awake, alert and oriented x3. Assessment: Syncopal episode History of coronary artery disease with previous stenting of the RCA and LAD with recent cardiac catheterization 12/25 with plan for medical management Ischemic cardiomyopathy with most recent EF of 50% Hypertension Dyslipidemia Valvular heart disease with mitral regurgitation, aortic regurgitation, tricuspid regurgitation Lower extremity PAD CLL Plan: Continue patient's home cardiac medications No need to repeat echocardiogram as this was done in May Discontinue IV fluids and ambulate patient in the hallway If patient has no symptoms, she is cleared to be discharged home on her previous cardiac medications. Nurse practitioner note has been reviewed, I agree with documented findings and plan of care. Patient was seen and examined. Objective - Vital Signs Vital signs: Vital Signs Temp 97.7 F 01/10/24 06:45 Pulse 68 01/10/24 06:45 Resp 16 01/10/24 06:45 BP 147/69 01/10/24 06:45 Pulse Ox 96 01/10/24 06:45 FiO2 Intake & Output 01/09/24 01/10/24 01/10/24 18:59 06:59 18:59 Intake Total 354 Balance 354 Intake: Oral 354 Other: Voiding Method Toilet # Voids 2 1 - Labs CBC & Chem 7: 01/09/24 06:10 01/09/24 06:10 Labs: Abnormal Lab Results - Last 24 Hours (Table) 01/09/24 01/09/24 Range/Units 06:10 06:10 WBC 24.93 H (4.50-10.00) X 10*3/uL RBC 3.39 L (4.10-5.20) X 10*6/uL Hgb 11.3 L (12.0-15.0) g/dL Hct 33.6 L (37.2-46.3) % MCV 99.1 H (80.0-97.0) FL MCH 33.3 H (27.0-32.0) pg MPV 9.3 L (9.5-12.2) FL Lymphocytes # (Manual) 22.19 H (0.90-5.00) X 10*3/uL Carbon Dioxide 20.9 L (21.6-31.8) mmol/L Est GFR (CKD-EPI) 57 L (>=60) BUN/Creatinine Ratio 9.90 L (12.00-20.00) Ratio Total Protein 5.6 L (6.2-8.2) g/dL Globulin 1.5 L (1.6-3.3) g/dL Microbiology - Last 24 Hours (Table) 01/08/24 12:31 Blood Culture - Preliminary Blood 01/08/24 12:31 Blood Culture - Preliminary Blood 01/08/24 10:52 Urine Culture - Preliminary Urine,Clean Catch Gram Neg Bacilli
--- NOTE | 2024-01-10 13:07 | P.DS ---
Providers Date of admission: 01/08/24 13:29 Expected date of discharge: 01/10/24 Attending physician: Evangelina Kenney Consults: 01/09/24 09:46 Consult Physician Routine Consulting Provider: [facility] Consult Reason/Comments: syncope Do you want consulting provider notified?: Yes Primary care physician: Evangelina Kenney Hospital Course: HISTORY OF PRESENT ILLNESS: This is a 78-year-old female with a previous medical history significant for coronary artery disease status post PCI of the LAD initially January 21, 2015 followed by left heart catheterization with PCI of the RCA in August 30, 2016, and left heart catheterization in November 29, 2023 with PCI of the LAD, hypertension and hypertensive cardiovascular disease, hyperlipidemia, hypothyroidism, chronic lymphocytic leukemia, osteopenia of the right hip, GERD, spondylosis of the cervical spine, COPD, allergic rhinitis, patient was recently seen by Dr. Logan underwent left heart catheterization that was done on December 29, 2023, and that heart catheterization showed evidence of calcified right and left coronary system with patent stented area to the LAD as well as RCA, however there was evidence of ostial lesion of the PDA of the RCA and of the left circumflex artery but it was nondominant vessel with a TAWANNA III flow he was advised at that time to continue with aggressive and maximize medical therapy a nd the patient continues to have some issues that she will need to go for a left heart catheterization and trying to attempt to angioplasty the ostial lesion of the LCx. Patient was at ch[place], and she had a presyncopal episode, therefore she was brought into the emergency department at [facility] for evaluation, her laboratory evaluation beside her CLL was negative except for urinary tract infection, she was started on IV fluid resuscitation, and she was started on IV antibiotic, she was admitted to the hospital for evaluation and treatment. 01/08: Patient is laying down in bed in no apparent distress, she is feeling generally weak, she has no chest pain or shortness of breath, she has not had any dizzy spells, she has no abdominal pain, nausea vomiting or diarrhea, she has been started on IV antibiotic in the form of ceftriaxone 1 g IV piggyback every 24 hours for UTI, culture still pending, keep the patient in the hospital for another 24 hours then she can be discharged home in the next 24 hours she may need to have a 30-day event monitor. 01/09: Patient sitting up in bed in no apparent distress, she is feeling more awake and more alert today, she is moving around okay, I will switch the patient to oral antibiotic in the form of cefuroxime to 50 mg orally twice every day for the next 7 days. I will follow-up with the patient as an outpatient in 1 week, patient was seen already by cardiology she was cleared for discharge. Discharge diagnoses: 1. Syncope. 2. UTI with SIRS. 3. Coronary artery disease status post PCI of the LAD and RCA. 4. Hypertension and hypertensive cardiovascular disease. 5. Mixed hyperlipidemia. 6. Hypothyroidism. 7. GERD with esophagitis. 8. Allergic rhinitis. 9. Osteopenia of the right hip. 10. Mild COPD. 11. Spondylosis of the cervical spine status post ACDF of C3-C7. 12. Vascular dementia. Patient Condition at Discharge: Stable Plan - Discharge Summary New Discharge Prescriptions: No Action Multivitamins, Thera [Multivitamin (formulary)] 1 tab PO DAILY Cetirizine HCl [Zyrtec] 10 mg PO DAILY Levothyroxine Sodium [Synthroid] 75 mcg PO DAILY Atorvastatin [Lipitor] 80 mg PO HS Timolol [Betimol 0.5% Ophth Soln] 1 drop BOTH EYES BID Calcium Carbonate [Calcium] 600 mg PO HS Nitroglycerin Sl Tabs [Nitrostat] 0.4 mg SL Q5M PRN PRN Reason: Chest Pain amLODIPine [Norvasc] 5 mg PO DAILY Ranolazine [Ranexa] 500 mg PO BID Metoprolol Succinate (ER) [Toprol Xl] 100 mg PO DAILY Donepezil [Aricept] 5 mg PO HS Omeprazole 20 mg PO DAILY Losartan Potassium 100 mg PO HS Isosorbide Mononitrate ER [Imdur] 60 mg PO DAILY Aspirin EC [Ecotrin Low Dose] 81 mg PO DAILY Discharge Medication List Atorvastatin [Lipitor] 80 mg PO HS 08/04/16 [History] Calcium Carbonate [Calcium] 600 mg PO HS 08/04/16 [History] Cetirizine HCl [Zyrtec] 10 mg PO DAILY 08/04/16 [History] Levothyroxine Sodium [Synthroid] 75 mcg PO DAILY 08/04/16 [History] Multivitamins, Thera [Multivitamin (formulary)] 1 tab PO DAILY 08/04/16 [History] Timolol [Betimol 0.5% Ophth Soln] 1 drop BOTH EYES BID 08/04/16 [History] Nitroglycerin Sl Tabs [Nitrostat] 0.4 mg SL Q5M PRN 08/25/16 [History] Omeprazole 20 mg PO DAILY 12/26/23 [History] amLODIPine [Norvasc] 5 mg PO DAILY 12/26/23 [History] Aspirin EC [Ecotrin Low Dose] 81 mg PO DAILY 01/08/24 [History] Donepezil [Aricept] 5 mg PO HS 01/08/24 [History] Isosorbide Mononitrate ER [Imdur] 60 mg PO DAILY 01/08/24 [History] Losartan Potassium 100 mg PO HS 01/08/24 [History] Metoprolol Succinate (ER) [Toprol Xl] 100 mg PO DAILY 01/08/24 [History] Ranolazine [Ranexa] 500 mg PO BID 01/08/24 [History] Follow up Appointment(s)/Referral(s): Evangelina Kenney MD [Primary Care Provider] - 1-2 days
== END 2024-01-10 13:58 | disposition home or self-care (01) ==
LOC: EC 10:32 → 6NMEDSUR 13:29
PROVIDERS: ADMIT Internal Medicine; ATTEND Internal Medicine
DX: R55 Syncope and collapse (principal); N39.0 Urinary tract infection, site not specified; R65.10 Systemic inflammatory response syndrome (SIRS) of non-infectious origin without acute organ dysfunction; I25.10 Atherosclerotic heart disease of native coronary artery without angina pectoris; I11.9 Hypertensive heart disease without heart failure; C91.10 Chronic lymphocytic leukemia of B-cell type not having achieved remission; E03.9 Hypothyroidism, unspecified; E78.2 Mixed hyperlipidemia; F01.50 Vascular dementia, unspecified severity, without behavioral disturbance, psychotic disturbance, mood disturbance, and anxiety; H54.62 Unqualified visual loss, left eye, normal vision right eye; I08.3 Combined rheumatic disorders of mitral, aortic and tricuspid valves; I25.5 Ischemic cardiomyopathy; K21.00 Gastro-esophageal reflux disease with esophagitis, without bleeding; M47.812 Spondylosis without myelopathy or radiculopathy, cervical region; M85.851 Other specified disorders of bone density and structure, right thigh; J30.9 Allergic rhinitis, unspecified; J44.9 Chronic obstructive pulmonary disease, unspecified; Z98.41 Cataract extraction status, right eye; Z95.5 Presence of coronary angioplasty implant and graft; Z90.710 Acquired absence of both cervix and uterus; Z90.49 Acquired absence of other specified parts of digestive tract; Z83.3 Family history of diabetes mellitus; Z82.5 Family history of asthma and other chronic lower respiratory diseases; Z82.49 Family history of ischemic heart disease and other diseases of the circulatory system; Z80.6 Family history of leukemia; Z80.41 Family history of malignant neoplasm of ovary; Z80.0 Family history of malignant neoplasm of digestive organs; Z79.82 Long term (current) use of aspirin
CPT/HCPCS: 96372 ×2; 96361 ×2; 96365; 96375; 99285; 36415; 94760; 93005; 85379; 80053 ×2; 83605; 83735; 84484 ×2; 85025 ×2; 85610; 85730; 81001; 87040; 87086; 87077; 87186; 71046; G0378 ×3; J1650 ×2; J0696 ×3; 96376

== ENCOUNTER → 2024-02-17 | Outpatient (CLI) | payer MEDICARE ==
--- NOTE | 2024-02-17 14:15 | MM ---
Reason for Exam: Additional evaluation requested from abnormal screening. Last screening mammogram was performed 1 month(s) ago. Patient History: Menarche at age 11. First Full-Term at age 24. Left ovary removed at age 41. Right ovary removed at age 41. Hysterectomy at age 41. Postmenopausal. Estrogen for 19 years, 4 months, from age 41 until age 60. Maternal aunt had ovarian cancer, age 19. Risk Values: Domi 5 year model risk: 1.9%. NCI Lifetime model risk: 3.1%. Prior Study Comparison: 05/01/2009 Bilateral Screening Mammogram, [facility]. 06/06/2013 Bilateral Screening Mammogram, [facility]. 01/06/2024 Bilateral MG 3D screening mammo w/cad, [facility]. Tissue Density: Left: The breasts are heterogeneously dense, which may obscure small masses. Findings: Analyzed By CAD. The previous superficially located medial nodularity has resolved in the interval. Given the patient's reported blood thinner use, favor a small hematoma which has resolved. No discrete abnormality is seen. Overall Assessment: Benign, BI-RAD 2 Management: Screening Mammogram of both breasts in 1 year. Results were given to the patient verbally at the time of exam. Patient should continue monthly self-breast exams. A clinical breast exam by your physician is recommended on an annual basis. This exam should not preclude additional follow-up of suspicious palpable abnormalities. Note on Domi scores and lifetime risk: 1. A Domi score greater than 3% is considered moderate risk. If this is the case, consider specialist referral to assess eligibility for a risk reducing agent. 2. If overall lifetime risk for the development of breast cancer is 20% or higher, the patient may qualify for future screening with alternating mammogram and breast MRI. Electronically signed and approved by: Sunita Wilkes M.D. Radiologist
== END | disposition home or self-care (01) ==
LOC: RADMAMWWP 08:29
PROVIDERS: ATTEND Internal Medicine
DX: R92.8 Other abnormal and inconclusive findings on diagnostic imaging of breast
CPT/HCPCS: 77061; 77065

== ENCOUNTER 2025-01-13 10:57 | Emergency (ER) | payer MEDICARE ==
[2025-01-13 11:06] VITALS: RESP 18
--- NOTE | 2025-01-13 11:41 | ED ---
General Adult HPI - General Chief complaint: Syncope Stated complaint: Near syncope Time Seen by Provider: 01/13/25 10:59 Source: patient, family, EMS, RN notes reviewed Mode of arrival: EMS Limitations: no limitations - History of Present Illness Initial comments: Patient is an 79-year-old female presenting emergency department for near syncopal episode. Patient was at [employer] when she suddenly did not feel well. Patient felt a little bit lightheaded and had concerns that she may pass out. Patient never lost consciousness. Patient did not pass out. is present and confirms history and confirms that patient did not pass out. No chest pain or palpitations. No dyspnea. No abdominal pain. No headache or confusion. Patient admits to feeling a little bit fatigued still. - Related Data Home Medications Medication Instructions Recorded Confirmed Atorvastatin [Lipitor] 80 mg PO HS 08/04/16 01/08/24 Calcium Carbonate [Calcium] 600 mg PO HS 08/04/16 01/08/24 Cetirizine HCl [Zyrtec] 10 mg PO DAILY 08/04/16 01/08/24 Levothyroxine Sodium [Synthroid] 75 mcg PO DAILY 08/04/16 01/08/24 Multivitamins, Thera [Multivitamin 1 tab PO DAILY 08/04/16 01/08/24 (formulary)] Timolol [Betimol 0.5% Ophth Soln] 1 drop BOTH EYES BID 08/04/16 01/08/24 Nitroglycerin Sl Tabs [Nitrostat] 0.4 mg SL Q5M PRN 08/25/16 01/08/24 Omeprazole 20 mg PO DAILY 12/26/23 01/08/24 amLODIPine [Norvasc] 5 mg PO DAILY 12/26/23 01/08/24 Aspirin EC [Ecotrin Low Dose] 81 mg PO DAILY 01/08/24 01/08/24 Donepezil [Aricept] 5 mg PO HS 01/08/24 01/08/24 Isosorbide Mononitrate ER [Imdur] 60 mg PO DAILY 01/08/24 01/08/24 Losartan Potassium 100 mg PO HS 01/08/24 01/08/24 Metoprolol Succinate (ER) [Toprol 100 mg PO DAILY 01/08/24 01/08/24 XL] Ranolazine [Ranexa] 500 mg PO BID 01/08/24 01/08/24 Previous Rx's Medication Instructions Recorded Cefuroxime [Ceftin] 250 mg PO BID 7 Days #14 tab 01/10/24 Allergies Allergy/AdvReac Type Severity Reaction Status Date / Time morphine AdvReac Unknown Nausea & Verified 01/13/25 11:06 Vomiting, Dreams. codeine AdvReac Nausea & Verified 01/13/25 11:06 Vomiting Review of Systems ROS Statement: Those systems with pertinent positive or pertinent negative responses have been documented in the HPI. ROS Other: All systems not noted in ROS Statement are negative. Constitutional: Denies: fever Eyes: Denies: eye pain ENT: Denies: ear pain Respiratory: Denies: cough, dyspnea Cardiovascular: Denies: chest pain, palpitations Endocrine: Reports: fatigue Gastrointestinal: Denies: abdominal pain, nausea, vomiting Musculoskeletal: Denies: back pain Neurological: Denies: headache, weakness Past Medical History Past Medical History: Coronary Artery Disease (CAD), Chest Pain / Angina, Hyperlipidemia, Hypertension, Pneumonia, Syncope, Thyroid Disorder Additional Past Medical History / Comment(s): recent stress test,SOB w/ tighteness in chest,HYPOGLYCEMIA years ago, PAST MIGRAINES, LT EYE BLIND, leakage OF URINE, CONSTIPATION, SEASONAL ALG,CLL-follows w/ Dr Elidai History of Any Multi-Drug Resistant Organisms: None Reported Past Surgical History: Appendectomy, Back Surgery, Bowel Resection, Heart Catheterization With Stent, Hysterectomy Additional Past Surgical History / Comment(s): CERVICAL FUSIONS, RT CATARACT, MULTIPLE LT EYE SURGERYS, LT HAND INDEX FINGER BENIGN GROWTH REMOVED, PAPO OVARIAN CYST-1 RUTPURED, BOWEL RESECTION D/T BLOCKAGE, RT EYE SX FOR MAC[place]A HOLE, 5 total CARDIAC STENTS. Past Anesthesia/Blood Transfusion Reactions: Family History of Problems w/ Anesthesia, Postoperative Nausea & Vomiting (PONV) Additional Past Anesthesia/Blood Transfusion Reaction / Comment(s): mother-PONV. no hx blood transfusion Date of Last Stent Placement:: Past Psychological History: No Psychological Hx Reported Smoking Status: Never smoker Past Alcohol Use History: None Reported Past Drug Use History: None Reported - Past Family History Mother Family Medical History: Osteoarthritis (OA), Rheumatoid Arthritis (RA) Additional Family Medical History / Comment(s): DIEDT CONTROLLED DIABETES. PT'S AUNT FROM OVARIAN CANCER. Father Family Medical History: Cancer, Myocardial Infarction (NM) Additional Family Medical History / Comment(s): AT AGE 52 HAD NM THEN 11 YEARS LATER FROM LEUKEMIA General Exam Limitations: no limitations General appearance: alert, in no apparent distress Head exam: Present: atraumatic Eye exam: Present: EOMI, other (Left eye completely opacified from previous disease) Neck exam: Present: normal inspection Respiratory exam: Present: normal lung sounds bilaterally Cardiovascular Exam: Present: regular rate, normal rhythm, normal heart sounds Expanded Peripheral pulses: 2+: Radial (R), Radial (L), Posterior Tibialis (R), Posterior Tibialis (L) GI/Abdominal exam: Present: soft. Absent: tenderness, pulsatile mass Extremities exam: Present: normal inspection, full ROM. Absent: tenderness Neurological exam: Present: alert, CN II-XII intact. Absent: motor sensory de ficit Expanded Patient oriented to: Present: person, place. Absent: time (Oriented to month however states year is 2023.) Speech: Present: fluid speech Psychiatric exam: Present: normal affect, normal mood Skin exam: Present: other (Facial ecchymosis from reported fall 1 week ago.) Course Vital Signs 01/13/25 01/13/25 01/13/25 11:00 12:03 12:45 Temperature 98.7 F Pulse Rate 57 L 57 L 63 Respiratory 18 18 18 Rate Blood Pressure 135/65 117/55 O2 Sat by Pulse 99 98 97 Oximetry EKG Findings - EKG Results: EKG: interpreted by ERMD, sinus rhythm, normal axis, normal QRS, normal ST/T EKG shows: bradycardia Medical Decision Making - Medical Decision Making Was pt. sent in by a medical professional or institution (, PA, [employer], urgent care, hospital, or long term...) When possible be specific @ -No Did you speak to anyone other than the patient for history (EMS, parent, family, police, friend...)? What history was obtained from this source @ - is present and helps provide history as he witnessed the event Did you review nursing and triage notes (agree or disagree)? Why? @ -I reviewed and agree with nursing and triage notes Were old charts reviewed (outside hosp., previous admission, EMS record, old EKG, old radiological studies, urgent care reports/EKG's, long term records)? Report findings @ -Previous labs reviewed including elevated white blood cell count which patient attributes to CLL that she is having monitored with oncology Differential Diagnosis (chest pain, altered mental status, abdominal pain women, abdominal pain men, vaginal bleeding, weakness, fever, dyspnea, syncope, headache, dizziness, GI bleed, back pain, seizure, CVA, palpatations, mental health, musculoskeletal)? @ -Differential Syncope: Valvular disease, hypertrophic cardiomyopathy, pulmonary embolism, tamponade, tachycardia, bradycardia, NM, hypovolemia, hemorrhage, dissection, anemia, intracranial hemorrhage, seizure, hypoglycemia, carbon monoxide poisoning, this is not meant to be an all-inclusive list. EKG interpreted by me (3pts min.). @ -As above X-rays interpreted by me (1pt min.). @ -Chest x-ray shows no acute process CT interpreted by me (1pt min.). @ -CT brain without acute abnormality U/S interpreted by me (1pt. min.). @ -None done What testing was considered but not performed or refused? (CT, X-rays, U/S, labs)? Why? @ -None What meds were considered but not given or refused? Why? @ -None Did you discuss the management of the patient with other professionals (professionals i.e. , PA, [employer], lab, RT, psych nurse, psychologist social, adjunct professor, teacher, aviation safety officer, case assembler)? Give summary @ -No Was smoking cessation discussed for >3mins.? @ -No Was critical care preformed (if so, how long)? @ -No Were there social determinants of health that impacted care today? How? (Homelessness, low income, unemployed, alcoholism, drug addiction, transportation, low edu. Level, literacy, decrease access to med. care, usp, rehab)? @ -No Was there de-escalation of care discussed even if they declined (Discuss DNR or withdrawal of care, Hospice)? DNR status @ -No What co-morbidities impacted this encounter? (DM, HTN, Smoking, COPD, CAD, Cancer, CVA, ARF, Chemo, Hep., AIDS, mental health diagnosis, sleep apnea, morbid obesity)? @ -CLL Was patient admitted / discharged? Hospital course, mention meds given and route, prescriptions, significant lab abnormalities, going to OR and other pertinent info. @ -Patient presents with near syncopal episode. Patient symptom-free on evaluation. Patient remains symptom-free on reevaluation. Workup with mild hyponatremia, IV fluid provided. Patient also has elevated white count that is attributed to her CLL. Patient and family updated on results and plan and need for follow-up Undiagnosed new problem with uncertain prognosis? @ -No Drug Therapy requiring intensive monitoring for toxicity (Heparin, Nitro, Insulin, Cardizem)? @ -No Were any procedures done? @ -No Diagnosis/symptom? @ -Near syncope Acute, or Chronic, or Acute on Chronic? @ -Acute Uncomplicated (without systemic symptoms) or Complicated (systemic symptoms)? @ -Complicated with hyponatremia, mild Side effects of treatment? @ -No Exacerbation, Progression, or Severe Exacerbation? @ -No Poses a threat to life or bodily function? How? (Chest pain, USA, NM, pneumonia, PE, COPD, DKA, ARF, appy, cholecystitis, CVA, Diverticulitis, Homicidal, Suicidal, threat to staff... and all critical care pts) @ -No - Lab Data Result diagrams: 01/13/25 11:53 01/13/25 11:53 Lab Results 01/13/25 01/13/25 01/13/25 Range/Units 11:53 11:53 11:53 WBC 35.10 H (4.50-10.00) 10*3/uL RBC 3.02 L (4.10-5.20) 10*6/uL Hgb 10.6 L (12.0-15.0) g/dL Hct 30.9 L (37.2-46.3) % MCV 102.3 H (80.0-97.0) fL MCH 35.1 H (27.0-32.0) pg MCHC 34.3 (32.0-37.0) g/dL Plt Count 251 (140-440) 10*3/uL MPV 8.5 L (9.5-12.2) fL Immature Gran % (Auto) 0.3 % Immature Gran # 0.12 H (0.00-0.04) 10*3/uL PT 10.8 (10.0-12.5) sec INR 1.0 (<1.2) APTT 22.2 (22.0-30.0) sec Sodium 130 L (137-145) mmol/L Potassium 5.0 (3.5-5.1) mmol/L Chloride 101 (98-107) mmol/L Carbon Dioxide 19 L (22-30) mmol/L Anion Gap 10 mmol/L BUN 17 (7-17) mg/dL Creatinine 0.80 (0.52-1.04) mg/dL Est GFR (CKD-EPI)AfAm 81 (>60 ml/min/1.73 sqM) Est GFR (CKD-EPI)NonAf 70 (>60 ml/min/1.73 sqM) Glucose 115 H (74-99) mg/dL Calcium 9.3 (8.4-10.2) mg/dL Magnesium 2.0 (1.6-2.3) mg/dL Total Bilirubin 1.1 (0.2-1.3) mg/dL AST 37 H (14-36) U/L ALT 20 (4-34) U/L Alkaline Phosphatase 62 (38-126) U/L Troponin I (0.000-0.034) ng/mL Total Protein 5.7 L (6.3-8.2) g/dL Albumin 3.8 (3.5-5.0) g/dL / Range/Units 11:53 WBC (4.50-10.00) 10*3/uL RBC (4.10-5.20) 10*6/uL Hgb (12.0-15.0) g/dL Hct (37.2-46.3) % MCV (80.0-97.0) fL MCH (27.0-32.0) pg MCHC (32.0-37.0) g/dL Plt Count (140-440) 10*3/uL MPV (9.5-12.2) fL Immature Gran % (Auto) % Immature Gran # (0.00-0.04) 10*3/uL PT (10.0-12.5) sec INR (<1.2) APTT (22.0-30.0) sec Sodium (137-145) mmol/L Potassium (3.5-5.1) mmol/L Chloride (98-107) mmol/L Carbon Dioxide (22-30) mmol/L Anion Gap mmol/L BUN (7-17) mg/dL Creatinine (0.52-1.04) mg/dL Est GFR (CKD-EPI)AfAm (>60 ml/min/1.73 sqM) Est GFR (CKD-EPI)NonAf (>60 ml/min/1.73 sqM) Glucose (74-99) mg/dL Calcium (8.4-10.2) mg/dL Magnesium (1.6-2.3) mg/dL Total Bilirubin (0.2-1.3) mg/dL AST (14-36) U/L ALT (4-34) U/L Alkaline Phosphatase (38-126) U/L Troponin I <0.012 (0.000-0.034) ng/mL Total Protein (6.3-8.2) g/dL Albumin (3.5-5.0) g/dL Disposition Clinical Impression: Near syncope Disposition: HOME SELF-CARE Condition: Stable Instructions (If sedation given, give patient instructions): Near Syncope (ED) Additional Instructions: Please do follow-up with your primary care physician in the next couple of days for recheck. Have primary care physician review sodium level and white blood cell count. Return for passing out, lightheadedness, weakness or confusion, worsening symptoms or other concerns Is patient prescribed a controlled substance at d/c from ED?: No Referrals: Evangelina Kenney MD [Primary Care Provider] - 1-2 days Time of Disposition: 13:59
[2025-01-13 12:01] LABS: HCT 30.9 % (37.2-46.3); HGB 10.6 g/dL (12.0-15.0); MCH 35.1 pg (27.0-32.0); MCHC 34.3 g/dL (32.0-37.0); MCV 102.3 fL (80.0-97.0); Platelet Count 251 10*3/uL (140-440); RBC 3.02 10*6/uL (4.10-5.20); RDW 12.2 % (11.5-14.5); WBC 35.10 10*3/uL (4.50-10.00)
[2025-01-13 12:15] LABS: ALT 20 U/L (4-34); AST 37 U/L (14-36); African American GFR (CKD) 81 (>60 ml/min/1.73 sqM); Albumin 3.8 g/dL (3.5-5.0); Alkaline Phosphatase 62 U/L (38-126); Anion Gap 10 mmol/L; Blood Urea Nitrogen 17 mg/dL (7-17); Calcium 9.3 mg/dL (8.4-10.2); Carbon Dioxide 19 mmol/L (22-30); Chloride 101 mmol/L (98-107); Glucose 115 mg/dL (74-99); Magnesium 2.0 mg/dL (1.6-2.3); Non-African American GFR(CKD) 70 (>60 ml/min/1.73 sqM); Potassium 5.0 mmol/L (3.5-5.1); Sodium 130 mmol/L (137-145); Total Protein 5.7 g/dL (6.3-8.2)
--- NOTE | 2025-01-13 12:35 | CT ---
The EXAMINATION TYPE: CT brain wo con DATE OF EXAM: 01/13/2025 COMPARISON: none CLINICAL INDICATION: Female, 79 years old with history of syncope; PHH, SYNCOPE TECHNIQUE: CT scan of the head is performed without contrast. CT DLP: 1097.[address] CTDI: mGy Automated exposure control for dose reduction was used. FINDINGS: There is no acute intracranial hemorrhage or midline shift identified. There is diffuse v entricular and sulcal prominence consistent with diffuse age-related cerebral atrophy. There is low- attenuation in the periventricular white matter consistent with chronic small vessel ischemic change. The globes are intact and the visualized sinuses are clear. Right-sided lacrimal gland mass. IMPRESSION: No acute intracranial hemorrhage or midline shift. There is diffuse age-related cerebra l atrophy and chronic small vessel ischemic change noted. [facility], , 01/13/2025 12:32 PM
[2025-01-13 12:37] LABS: INR 1.0 (<1.2); Partial Thromboplastin Time 22.2 sec (22.0-30.0); Prothrombin Time 10.8 sec (10.0-12.5)
--- NOTE | 2025-01-13 12:37 | XR ---
EXAMINATION TYPE: XR chest 2V DATE OF EXAM: 01/13/2025 12:04 PM COMPARISON: 01/08/2024 CLINICAL INDICATION: Female, 79 years old with history of syncope: Shortness of breath TECHNIQUE: XR chest 2V views of the chest are obtained. FINDINGS: Scattered senescent parenchymal changes noted. Hyperinflation compatible with COPD. No evidence for infiltrate. No evidence for atelectasis. Heart size is stable. Mediastinal structures are stable and grossly unremarkable. No evidence for hilar prominence. Degenerative changes dorsal spine. IMPRESSION: 1. No evidence for acute pulmonary disease. [facility], , 01/13/2025 12:34 PM
[2025-01-13 12:46] VITALS: PULSE 63
[2025-01-13 14:02] LABS: Lymphocytes # (M) 27.03 k/uL (1.0-4.8); Monocytes # (M) 1.05 k/uL (0-1.0); Neutrophils # (M) 7.02 k/uL (1.3-7.7); Neutrophils % (M) 20 %; Total Cells Counted 100
[2025-01-13] MEDS: SODIUM CHLORIDE 0.9% 500 ML 500 ML IV STA (14:06)
[2025-01-13 15:13] VITALS: BP 110/55; TEMP 98.1
== END 2025-01-13 15:13 | disposition home or self-care (01) ==
LOC: EC 10:57
DX: R55 Syncope and collapse (principal); Z88.5 Allergy status to narcotic agent
CPT/HCPCS: 36415; 70450; 71046; 80053; 83735; 84484; 85025; 85610; 85730; 93005; 99284